=== PATIENT | female | born 1945 | race Caucasian/White ===

== ENCOUNTER → 2017-04-26 | Day surgery (SDC) | payer MEDICARE, BC ==
[~2017-04-26] MED LIST: ASPIRIN 325 MG TAB PO; FENTAnyl 50 MCG/ML VIAL; HEPARIN 1000 UNITS/ML 10 ML INJ; IODIXANOL LOCM 100 ML BTL; LIDOCAINE 1% (MDV) 20 ML INJ; MIDAZOLAM 1 MG/ML 2 ML INJ; MIDAZOLAM 1 MG/ML 2 ML INJ IV; NACL 0.9% 3 ML SYG IV; VERAPAMIL 5 MG INJ
[2017-04-26 07:17] LABS: ADD MAN DIFF? NO
[2017-04-26 07:18] LABS: BASOPHILS % 0.4 % (0.0-2.0); EOSINOPHILS # 0.2 10^3/ul (0.0-0.5); EOSINOPHILS % 3.8 % (0.0-7.0); HEMATOCRIT 38.7 % (37.0-47.0); HEMOGLOBIN 13.5 g/dl (12.0-16.0); LYMPHOCYTES % 18.8 % (15.0-51.0); MEAN CORPUSCULAR HEMOGLOBIN 32.5 pg (29.0-33.0); MEAN CORPUSCULAR HGB CONC 34.9 g/dl (32.0-37.0); MEAN CORPUSCULAR VOLUME 93.3 fl (82.0-101.0); MEAN PLATELET VOLUME 8.9 fl (7.4-10.4); MONOCYTE # 0.4 10^3/ul (0.3-0.9); MONOCYTES % 7.9 % (0.0-11.0); NEUTROPHIL # 3.6 10^3/ul (1.6-7.5); NEUTROPHILS % 68.7 % (39.0-77.0); PLATELET COUNT 260 10^3/UL (140-415); RED BLOOD COUNT 4.15 10^6/ul (4.20-5.40); RED CELL DISTRIBUTION WIDTH 12.3 % (11.5-14.5)
[2017-04-26 07:18] LABS: WHITE BLOOD COUNT 5.2 10^3/ul (4.8-10.8)
[2017-04-26 07:43] LABS: ANION GAP 16 (8-16); CARBON DIOXIDE 28 mmol/L (21-31); CHLORIDE 96 mmol/L (97-110); GLUCOSE 204 mg/dl (70-220)
[2017-04-26 07:45] LABS: BLOOD UREA NITROGEN 15 mg/dl (7-20); CREATININE 0.63 mg/dl (0.44-1.00); POTASSIUM 4.1 mmol/L (3.5-5.1); SODIUM 136 mmol/L (135-144)
[2017-04-26 07:47] LABS: INR 0.89; PROTIME 12.1 Sec (11.9-14.9); PT RATIO 0.9
[2017-04-26] MEDS: hydrALAzine 20 MG INJ IV (08:49)
[2017-04-26] MEDS: ACETAMINOPHEN 325 MG TAB PO (10:14)
== END | disposition home or self-care (01) ==
LOC: SDS 06:13
DX: I21.4 Non-ST elevation (NSTEMI) myocardial infarction (principal); I47.1 Supraventricular tachycardia; E11.9 Type 2 diabetes mellitus without complications; I10 Essential (primary) hypertension; Z95.0 Presence of cardiac pacemaker
CPT/HCPCS: 80048; 82962; 85025; 85610; 85730; 93458

== ENCOUNTER 2017-07-08 05:20 | Inpatient (IN) | payer MEDICARE, BC ==
[2017-07-08 06:46] LABS: ADD MAN DIFF? NO
[2017-07-08 06:48] LABS: BASOPHILS % 0.8 % (0.0-2.0); EOSINOPHILS # 0.3 10^3/ul (0.0-0.5); EOSINOPHILS % 5.5 % (0.0-7.0); HEMATOCRIT 40.6 % (37.0-47.0); HEMOGLOBIN 14.1 g/dl (12.0-16.0); LYMPHOCYTES # 0.9 10^3/ul (0.8-2.9); LYMPHOCYTES % 17.1 % (15.0-51.0); MEAN CORPUSCULAR HEMOGLOBIN 31.8 pg (29.0-33.0); MEAN CORPUSCULAR HGB CONC 34.7 g/dl (32.0-37.0); MEAN CORPUSCULAR VOLUME 91.4 fl (82.0-101.0); MEAN PLATELET VOLUME 9.9 fl (7.4-10.4); MONOCYTE # 0.4 10^3/ul (0.3-0.9); MONOCYTES % 7.9 % (0.0-11.0); NEUTROPHIL # 3.5 10^3/ul (1.6-7.5); NEUTROPHILS % 68.3 % (39.0-77.0); PLATELET COUNT 202 10^3/UL (140-415); RED BLOOD COUNT 4.44 10^6/ul (4.20-5.40); RED CELL DISTRIBUTION WIDTH 12.9 % (11.5-14.5)
[2017-07-08 06:48] LABS: WHITE BLOOD COUNT 5.1 10^3/ul (4.8-10.8)
[2017-07-08] MEDS: SOD CHLORIDE 0.9% 1,000 ML IV (06:58)
[2017-07-08 07:06] LABS: ANION GAP 15 (8-16); BLOOD UREA NITROGEN 17 mg/dl (7-20); CALCIUM 9.3 mg/dl (8.4-10.2); CARBON DIOXIDE 31 mmol/L (21-31); CHLORIDE 98 mmol/L (97-110); CREATININE 0.67 mg/dl (0.44-1.00); GLUCOSE 315 mg/dl (70-220); SODIUM 140 mmol/L (135-144)
[2017-07-08 07:16] LABS: TROPONIN-I 0.024 ng/ml (0.00-0.12)
[2017-07-08] MEDS: ACETAMINOPHEN 325 MG TAB PO (07:29)
[2017-07-08] MEDS ORDERED: GLUCOSE GEL 15 GRAM TUBE BUCCAL (07:30)
[2017-07-08] MEDS ORDERED: GLUCOSE GEL 15 GRAM TUBE PO ×2 (07:30)
[2017-07-08] MEDS ORDERED: DEXTROSE 50% 50 ML SYRINGE IV ×2 (07:30)
[2017-07-08] MEDS ORDERED: GLUCAGON 1 MG INJ IM (07:30)
[2017-07-08] MEDS: INSULIN LISPRO 100 UNIT/ML VIAL SC (07:33)
[2017-07-08 09:18] LABS: ADD UMIC YES; UR ASCORBIC ACID NEGATIVE (NEGATIVE); UR BACTERIA FEW /HPF (NONE SEEN); UR BILIRUBIN (Dip) NEGATIVE (NEGATIVE); UR BLOOD (Dip) NEGATIVE (NEGATIVE); UR CLARITY CLEAR (CLEAR); UR COLOR YELLOW (YELLOW); UR GLUCOSE (Dip) 3+ mg/dL (NEGATIVE); UR KETONES (Dip) NEGATIVE (NEGATIVE); UR LEUKOCYTE ESTERASE (Dip) 1+ Leu/ul (NEGATIVE); UR NITRITE (Dip) POSITIVE (NEGATIVE); UR RBC 1 /HPF (0-5); UR SPECIFIC GRAVITY (Dip) 1.033 (1.003-1.030); UR SQUAMOUS EPITHELIAL CELL FEW /HPF (FEW); UR TOTAL PROTEIN (Dip) NEGATIVE (NEGATIVE); UR UROBILINOGEN (Dip) NEGATIVE (NEGATIVE); UR WBC 46 /HPF (0-5)
[2017-07-08] MEDS: CEFTRIAXONE 1 GM/50 ML (PMX) 50 ML IVPB (09:59)
[2017-07-08] MEDS ORDERED: ACETAMINOPHEN 325 MG TAB PO ×2 (10:30→16:30)
[2017-07-08] MEDS ORDERED: ONDANSETRON 4 MG INJ IV (10:30)
[2017-07-08] MEDS ORDERED: PROVENTIL HFA 6.7GM INHALER INH (15:30)
[2017-07-08] MEDS ORDERED: ONDANSETRON 4 MG TAB PO (16:30)
[2017-07-08 17:06] LABS: CHOL/HDL RATIO 2.7 RATIO; HDL CHOLESTEROL 82 mg/dl (33-92); LDL CHOLESTEROL,CALCULATED 114 mg/dl; TRIGLYCERIDES 129 mg/dl (0-149)
[2017-07-08 17:06] LABS: CHOLESTEROL 222 mg/dl (100-200)
[2017-07-08] MEDS: HYDROCODONE/APAP (5/325) TAB PO (17:07)
[2017-07-08] MEDS ORDERED: INSULIN ASPART [NOVOLOG] 3 ML PEN SC (17:35)
[2017-07-08] MEDS: INSULIN ASPART [NOVOLOG] 3 ML PEN SC ×3 (17:59→21:03)
[2017-07-08] MEDS ORDERED: glyBURIDE 5 MG TAB PO (18:05)
[2017-07-08] MEDS: FUROSEMIDE 20 MG TAB PO (18:15)
[2017-07-08] MEDS: DONEPEZIL 5 MG TAB PO (18:16)
[2017-07-08] MEDS: NICOTINE (21 MG/24 HR) PATCH TRANSDERM (18:17)
[2017-07-08] MEDS: CIPROFLOXACIN 400MG/D5W 200 ML IVPB (18:17)
[2017-07-08] MEDS: ALBUTEROL HFA 8 GM INHALER INH ×2 (18:17→21:00)
[2017-07-08] MEDS: INSULIN GLARGINE [LANtus] 3 ML PEN SC (18:19)
[2017-07-08] MEDS: ARIPIPRAZOLE 5 MG TAB PO (18:45)
[2017-07-08] MEDS ORDERED: clonAZEPAM 0.5 MG TAB PO (21:00)
[2017-07-08] MEDS ORDERED: carBAMAZepine (XR) 200 MG TABSR PO (21:00)
[2017-07-08] MEDS: METOPROLOL 50 MG TAB PO (21:02)
[2017-07-08] MEDS: traZODone 100 MG TAB PO (21:02)
[2017-07-08] MEDS: BENZTROPINE 1 MG TAB PO (21:02)
[2017-07-08] MEDS: clonAZEPAM 0.5 MG TAB PO (23:24)
[2017-07-09] MEDS: ALBUTEROL HFA 8 GM INHALER INH ×6 (01:00→20:30)
[2017-07-09] MEDS: ACCU-CHEK XX (02:00)
[2017-07-09] MEDS ORDERED: ACCU-CHEK XX ×2 (02:00)
[2017-07-09] MEDS: carBAMAZepine (XR) 100 MG TABSR PO ×3 (02:38→20:31)
[2017-07-09] MEDS: CIPROFLOXACIN 400MG/D5W 200 ML IVPB ×2 (05:45→17:39)
[2017-07-09] MEDS: LEVOTHYROXINE 75 MCG TAB PO (05:45)
[2017-07-09] MEDS: PANTOPRAZOLE SODIUM 20 MG TABEC PO (05:45)
[2017-07-09 06:34] LABS: ADD MAN DIFF? NO
[2017-07-09 06:42] LABS: WHITE BLOOD COUNT 4.4 10^3/ul (4.8-10.8)
[2017-07-09 06:42] LABS: BASOPHILS % 0.7 % (0.0-2.0); EOSINOPHILS # 0.3 10^3/ul (0.0-0.5); EOSINOPHILS % 6.6 % (0.0-7.0); HEMATOCRIT 36.7 % (37.0-47.0); HEMOGLOBIN 12.6 g/dl (12.0-16.0); LYMPHOCYTES # 1.3 10^3/ul (0.8-2.9); LYMPHOCYTES % 29.2 % (15.0-51.0); MEAN CORPUSCULAR HEMOGLOBIN 31.7 pg (29.0-33.0); MEAN CORPUSCULAR HGB CONC 34.3 g/dl (32.0-37.0); MEAN CORPUSCULAR VOLUME 92.4 fl (82.0-101.0); MONOCYTE # 0.4 10^3/ul (0.3-0.9); MONOCYTES % 7.9 % (0.0-11.0); NEUTROPHIL # 2.4 10^3/ul (1.6-7.5); NEUTROPHILS % 55.1 % (39.0-77.0); PLATELET COUNT 179 10^3/UL (140-415); RED BLOOD COUNT 3.97 10^6/ul (4.20-5.40); RED CELL DISTRIBUTION WIDTH 12.7 % (11.5-14.5)
[2017-07-09] MEDS: HYDROCODONE/APAP (5/325) TAB PO ×3 (07:00→23:22)
[2017-07-09 07:28] LABS: ALANINE AMINOTRANSFERASE 39 IU/L (13-69); ALBUMIN 3.6 g/dl (3.3-4.9); ALBUMIN/GLOBULIN RATIO 1.44; ALKALINE PHOSPHATASE 71 IU/L (42-121); ANION GAP 11 (8-16); ASPARTATE AMINO TRANSFERASE 30 IU/L (15-46); BILIRUBIN,INDIRECT 0.1 mg/dl (0-1.1); BILIRUBIN,TOTAL 0.1 mg/dl (0.2-1.3); BLOOD UREA NITROGEN 19 mg/dl (7-20); CARBON DIOXIDE 31 mmol/L (21-31); CHLORIDE 100 mmol/L (97-110); CREATININE 0.64 mg/dl (0.44-1.00); GLUCOSE 177 mg/dl (70-220); SODIUM 138 mmol/L (135-144); TOTAL PROTEIN 6.1 g/dl (6.1-8.1)
[2017-07-09] MEDS ORDERED: LEVOTHYROXINE 150 MCG TAB PO (07:30)
[2017-07-09] MEDS: INSULIN GLARGINE [LANtus] 3 ML PEN SC ×2 (08:37→20:35)
[2017-07-09] MEDS: INSULIN ASPART [NOVOLOG] 3 ML PEN SC ×4 (08:38→20:33)
[2017-07-09] MEDS: BENZTROPINE 1 MG TAB PO ×2 (08:39→20:31)
[2017-07-09] MEDS: METOPROLOL 50 MG TAB PO ×2 (08:39→20:31)
[2017-07-09] MEDS: VENLAFAXINE (XR) 75 MG CAP PO (08:40)
[2017-07-09] MEDS: traZODone 100 MG TAB PO ×2 (08:40→20:31)
[2017-07-09] MEDS: DONEPEZIL 5 MG TAB PO (08:40)
[2017-07-09] MEDS: TOLTERODINE (SR) 4 MG CAP PO (08:40)
[2017-07-09] MEDS: ARIPIPRAZOLE 5 MG TAB PO (08:40)
[2017-07-09] MEDS: FUROSEMIDE 20 MG TAB PO (08:40)
[2017-07-09] MEDS: ENALAPRIL 20 MG TAB PO (08:40)
[2017-07-09] MEDS: DILTIAZEM (CD) 120 MG CAP PO (08:40)
[2017-07-09] MEDS: NICOTINE (21 MG/24 HR) PATCH TRANSDERM (08:41)
[2017-07-09 10:21] LABS: HEMOGLOBIN A1C 9.4 % (0-5.9)
[2017-07-09] MEDS: clonAZEPAM 0.5 MG TAB PO (20:30)
[2017-07-10] MEDS: ALBUTEROL HFA 8 GM INHALER INH ×3 (01:00→21:00)
[2017-07-10] MEDS: ACCU-CHEK XX (02:00)
[2017-07-10] MEDS: hydrOXYzine HCL 10 MG TAB PO (04:20)
[2017-07-10] MEDS: LEVOTHYROXINE 75 MCG TAB PO (04:20)
[2017-07-10] MEDS: PANTOPRAZOLE SODIUM 20 MG TABEC PO (04:20)
[2017-07-10] MEDS: CIPROFLOXACIN 400MG/D5W 200 ML IVPB ×2 (04:21→17:02)
[2017-07-10] MEDS: INSULIN ASPART [NOVOLOG] 3 ML PEN SC ×4 (08:03→21:00)
[2017-07-10] MEDS: INSULIN GLARGINE [LANtus] 3 ML PEN SC ×2 (08:04→21:25)
[2017-07-10] MEDS: ARIPIPRAZOLE 5 MG TAB PO (08:44)
[2017-07-10] MEDS: NICOTINE (21 MG/24 HR) PATCH TRANSDERM (08:45)
[2017-07-10] MEDS: BENZTROPINE 1 MG TAB PO ×2 (08:45→20:33)
[2017-07-10] MEDS: carBAMAZepine (XR) 100 MG TABSR PO ×2 (08:45→20:33)
[2017-07-10] MEDS: DILTIAZEM (CD) 120 MG CAP PO (08:46)
[2017-07-10] MEDS: VENLAFAXINE (XR) 75 MG CAP PO (08:46)
[2017-07-10] MEDS: DONEPEZIL 5 MG TAB PO (08:46)
[2017-07-10] MEDS: TOLTERODINE (SR) 4 MG CAP PO (08:47)
[2017-07-10] MEDS: ENALAPRIL 20 MG TAB PO (08:47)
[2017-07-10] MEDS: FUROSEMIDE 20 MG TAB PO (08:47)
[2017-07-10] MEDS: traZODone 100 MG TAB PO ×2 (08:47→20:33)
[2017-07-10] MEDS: METOPROLOL 50 MG TAB PO ×2 (08:48→20:33)
[2017-07-10] MEDS: HYDROCODONE/APAP (5/325) TAB PO (17:03)
[2017-07-10] MEDS: CARISOPRODOL 350 MG TAB PO (17:03)
[2017-07-10] MEDS: clonAZEPAM 0.5 MG TAB PO (20:33)
[2017-07-10] MEDS ORDERED: hydrALAzine 20 MG INJ IV (22:30)
[2017-07-11] MEDS: ALBUTEROL HFA 8 GM INHALER INH ×6 (01:00→21:16)
[2017-07-11] MEDS: ACCU-CHEK XX (02:00)
[2017-07-11] MEDS: LEVOTHYROXINE 75 MCG TAB PO (05:16)
[2017-07-11] MEDS: CIPROFLOXACIN 400MG/D5W 200 ML IVPB ×2 (05:16→17:39)
[2017-07-11] MEDS: PANTOPRAZOLE SODIUM 20 MG TABEC PO (05:16)
[2017-07-11 06:12] LABS: ADD MAN DIFF? NO
[2017-07-11 06:16] LABS: WHITE BLOOD COUNT 5.1 10^3/ul (4.8-10.8)
[2017-07-11 06:16] LABS: BASOPHILS % 0.6 % (0.0-2.0); EOSINOPHILS # 0.3 10^3/ul (0.0-0.5); EOSINOPHILS % 5.3 % (0.0-7.0); HEMOGLOBIN 12.7 g/dl (12.0-16.0); MEAN CORPUSCULAR HEMOGLOBIN 31.2 pg (29.0-33.0); MEAN CORPUSCULAR HGB CONC 34.3 g/dl (32.0-37.0); MEAN CORPUSCULAR VOLUME 90.9 fl (82.0-101.0); MEAN PLATELET VOLUME 9.9 fl (7.4-10.4); MONOCYTE # 0.5 10^3/ul (0.3-0.9); MONOCYTES % 9.1 % (0.0-11.0); NEUTROPHIL # 3.3 10^3/ul (1.6-7.5); NEUTROPHILS % 64.6 % (39.0-77.0); PLATELET COUNT 182 10^3/UL (140-415); RED BLOOD COUNT 4.07 10^6/ul (4.20-5.40); RED CELL DISTRIBUTION WIDTH 12.5 % (11.5-14.5)
[2017-07-11 06:51] LABS: ANION GAP 13 (8-16); BLOOD UREA NITROGEN 19 mg/dl (7-20); CALCIUM 8.7 mg/dl (8.4-10.2); CARBON DIOXIDE 29 mmol/L (21-31); CHLORIDE 96 mmol/L (97-110); CREATININE 0.68 mg/dl (0.44-1.00); GLUCOSE 85 mg/dl (70-220); POTASSIUM 3.7 mmol/L (3.5-5.1); SODIUM 134 mmol/L (135-144)
[2017-07-11] MEDS: INSULIN ASPART [NOVOLOG] 3 ML PEN SC ×4 (08:00→21:00)
[2017-07-11] MEDS: INSULIN GLARGINE [LANtus] 3 ML PEN SC ×2 (09:22→21:27)
[2017-07-11] MEDS: DONEPEZIL 5 MG TAB PO (09:31)
[2017-07-11] MEDS: ARIPIPRAZOLE 5 MG TAB PO (09:31)
[2017-07-11] MEDS: DILTIAZEM (CD) 120 MG CAP PO (09:32)
[2017-07-11] MEDS: traZODone 100 MG TAB PO ×2 (09:32→21:24)
[2017-07-11] MEDS: BENZTROPINE 1 MG TAB PO ×2 (09:32→21:32)
[2017-07-11] MEDS: TOLTERODINE (SR) 4 MG CAP PO (09:33)
[2017-07-11] MEDS: VENLAFAXINE (XR) 75 MG CAP PO (09:33)
[2017-07-11] MEDS: FUROSEMIDE 20 MG TAB PO (09:33)
[2017-07-11] MEDS: ENALAPRIL 20 MG TAB PO (09:34)
[2017-07-11] MEDS: METOPROLOL 50 MG TAB PO ×2 (09:34→21:24)
[2017-07-11] MEDS: carBAMAZepine (XR) 100 MG TABSR PO ×2 (09:34→21:24)
[2017-07-11] MEDS: NICOTINE (21 MG/24 HR) PATCH TRANSDERM (09:36)
[2017-07-11] MEDS: clonAZEPAM 0.5 MG TAB PO (21:25)
[2017-07-12] MEDS: ALBUTEROL HFA 8 GM INHALER INH ×6 (01:00→21:01)
[2017-07-12] MEDS: ACCU-CHEK XX (01:27)
[2017-07-12] MEDS: LEVOTHYROXINE 75 MCG TAB PO (05:35)
[2017-07-12] MEDS: PANTOPRAZOLE SODIUM 20 MG TABEC PO (05:35)
[2017-07-12] MEDS: MAGNESIUM HYDROXIDE 30ML CUP PO (05:35)
[2017-07-12] MEDS: CIPROFLOXACIN 400MG/D5W 200 ML IVPB (05:35)
[2017-07-12 07:03] LABS: ALANINE AMINOTRANSFERASE 47 IU/L (13-69); ALBUMIN 3.4 g/dl (3.3-4.9); ALBUMIN/GLOBULIN RATIO 1.21; ALKALINE PHOSPHATASE 67 IU/L (42-121); ANION GAP 11 (8-16); ASPARTATE AMINO TRANSFERASE 31 IU/L (15-46); BILIRUBIN,INDIRECT 0.2 mg/dl (0-1.1); BILIRUBIN,TOTAL 0.2 mg/dl (0.2-1.3); BLOOD UREA NITROGEN 17 mg/dl (7-20); CALCIUM 8.5 mg/dl (8.4-10.2); CARBON DIOXIDE 29 mmol/L (21-31); CHLORIDE 95 mmol/L (97-110); POTASSIUM 3.5 mmol/L (3.5-5.1); SODIUM 131 mmol/L (135-144); TOTAL PROTEIN 6.2 g/dl (6.1-8.1)
[2017-07-12 07:06] LABS: GLUCOSE 49 mg/dl (70-220)
[2017-07-12] MEDS: INSULIN ASPART [NOVOLOG] 3 ML PEN SC ×4 (08:00→20:45)
[2017-07-12] MEDS: INSULIN GLARGINE [LANtus] 3 ML PEN SC ×2 (08:46→21:00)
[2017-07-12] MEDS: DONEPEZIL 5 MG TAB PO (09:00)
[2017-07-12] MEDS: NICOTINE (21 MG/24 HR) PATCH TRANSDERM (09:21)
[2017-07-12] MEDS: VENLAFAXINE (XR) 75 MG CAP PO (09:22)
[2017-07-12] MEDS: BENZTROPINE 1 MG TAB PO ×2 (09:23→22:17)
[2017-07-12] MEDS: carBAMAZepine (XR) 100 MG TABSR PO ×2 (11:27→22:18)
[2017-07-12] MEDS: ARIPIPRAZOLE 5 MG TAB PO (11:29)
[2017-07-12] MEDS: DILTIAZEM (CD) 120 MG CAP PO (11:30)
[2017-07-12] MEDS: TOLTERODINE (SR) 4 MG CAP PO (11:30)
[2017-07-12] MEDS: traZODone 100 MG TAB PO ×2 (11:31→22:17)
[2017-07-12] MEDS: hydrOXYzine HCL 10 MG TAB PO (11:35)
[2017-07-12] MEDS: FUROSEMIDE 20 MG TAB PO (11:35)
[2017-07-12] MEDS: METOPROLOL 50 MG TAB PO ×2 (11:36→21:04)
[2017-07-12] MEDS: ENALAPRIL 20 MG TAB PO (11:36)
[2017-07-12] MEDS: HYDROCODONE/APAP (5/325) TAB PO (12:04)
[2017-07-12 14:56] LABS: CREATININE, RANDOM URINE 59 mg/dL (20-320); MICROALBUMIN 1.3 mg/dL; MICROALBUMIN/CREATININE RATIO 22 (<30)
[2017-07-12] MEDS: CIPROFLOXACIN 500 MG TAB PO (19:36)
[2017-07-12] MEDS: clonAZEPAM 0.5 MG TAB PO (21:04)
[2017-07-13] MEDS: ACCU-CHEK XX (02:00)
[2017-07-13] MEDS: ALBUTEROL HFA 8 GM INHALER INH ×6 (02:07→21:28)
[2017-07-13] MEDS: MAGNESIUM HYDROXIDE 30ML CUP PO (05:22)
[2017-07-13] MEDS: LEVOTHYROXINE 75 MCG TAB PO (05:28)
[2017-07-13] MEDS: CIPROFLOXACIN 500 MG TAB PO ×2 (05:28→17:32)
[2017-07-13] MEDS: PANTOPRAZOLE SODIUM 20 MG TABEC PO (06:00)
[2017-07-13 06:21] LABS: ADD MAN DIFF? NO
[2017-07-13 06:25] LABS: WHITE BLOOD COUNT 3.6 10^3/ul (4.8-10.8)
[2017-07-13 06:25] LABS: BASOPHILS % 0.3 % (0.0-2.0); EOSINOPHILS # 0.2 10^3/ul (0.0-0.5); EOSINOPHILS % 5.5 % (0.0-7.0); HEMATOCRIT 34.7 % (37.0-47.0); HEMOGLOBIN 12.1 g/dl (12.0-16.0); LYMPHOCYTES # 0.9 10^3/ul (0.8-2.9); LYMPHOCYTES % 24.8 % (15.0-51.0); MEAN CORPUSCULAR HEMOGLOBIN 31.8 pg (29.0-33.0); MEAN CORPUSCULAR HGB CONC 34.9 g/dl (32.0-37.0); MEAN CORPUSCULAR VOLUME 91.1 fl (82.0-101.0); MEAN PLATELET VOLUME 9.9 fl (7.4-10.4); MONOCYTE # 0.4 10^3/ul (0.3-0.9); MONOCYTES % 9.9 % (0.0-11.0); NEUTROPHIL # 2.2 10^3/ul (1.6-7.5); NEUTROPHILS % 59.2 % (39.0-77.0); PLATELET COUNT 158 10^3/UL (140-415); RED BLOOD COUNT 3.81 10^6/ul (4.20-5.40); RED CELL DISTRIBUTION WIDTH 12.6 % (11.5-14.5)
[2017-07-13 06:53] LABS: ANION GAP 11 (8-16); BLOOD UREA NITROGEN 19 mg/dl (7-20); CALCIUM 8.4 mg/dl (8.4-10.2); CARBON DIOXIDE 29 mmol/L (21-31); CHLORIDE 94 mmol/L (97-110); CREATININE 0.82 mg/dl (0.44-1.00); GLUCOSE 91 mg/dl (70-220); POTASSIUM 3.9 mmol/L (3.5-5.1); SODIUM 130 mmol/L (135-144)
[2017-07-13] MEDS: INSULIN ASPART [NOVOLOG] 3 ML PEN SC ×4 (08:00→21:38)
[2017-07-13] MEDS: INSULIN GLARGINE [LANtus] 3 ML PEN SC ×2 (08:28→20:32)
[2017-07-13] MEDS: BENZTROPINE 1 MG TAB PO ×2 (10:30→21:26)
[2017-07-13] MEDS: ARIPIPRAZOLE 5 MG TAB PO (10:31)
[2017-07-13] MEDS: carBAMAZepine (XR) 100 MG TABSR PO ×2 (10:31→21:26)
[2017-07-13] MEDS: DILTIAZEM (CD) 120 MG CAP PO (10:32)
[2017-07-13] MEDS: HYDROCODONE/APAP (5/325) TAB PO ×2 (10:33→23:47)
[2017-07-13] MEDS: ENALAPRIL 20 MG TAB PO (10:33)
[2017-07-13] MEDS: traZODone 100 MG TAB PO ×2 (10:40→21:25)
[2017-07-13] MEDS: VENLAFAXINE (XR) 75 MG CAP PO (10:40)
[2017-07-13] MEDS: TOLTERODINE (SR) 4 MG CAP PO (10:40)
[2017-07-13] MEDS: METOPROLOL 50 MG TAB PO ×2 (10:41→21:27)
[2017-07-13] MEDS: NICOTINE (21 MG/24 HR) PATCH TRANSDERM (10:41)
[2017-07-13] MEDS: FUROSEMIDE 20 MG TAB PO (10:41)
[2017-07-13] MEDS: DONEPEZIL 5 MG TAB PO (12:37)
[2017-07-13] MEDS: clonAZEPAM 0.5 MG TAB PO (21:27)
[2017-07-14] MEDS: ALBUTEROL HFA 8 GM INHALER INH ×6 (01:19→20:43)
[2017-07-14] MEDS: ACCU-CHEK XX (02:00)
[2017-07-14] MEDS: LEVOTHYROXINE 75 MCG TAB PO (06:22)
[2017-07-14] MEDS: PANTOPRAZOLE SODIUM 20 MG TABEC PO (06:22)
[2017-07-14] MEDS: CIPROFLOXACIN 500 MG TAB PO ×2 (06:22→18:39)
[2017-07-14 06:32] LABS: ADD MAN DIFF? NO
[2017-07-14 06:48] LABS: BASOPHILS % 0.6 % (0.0-2.0); EOSINOPHILS # 0.3 10^3/ul (0.0-0.5); EOSINOPHILS % 6.1 % (0.0-7.0); HEMATOCRIT 36.5 % (37.0-47.0); HEMOGLOBIN 12.8 g/dl (12.0-16.0); LYMPHOCYTES # 1.4 10^3/ul (0.8-2.9); LYMPHOCYTES % 30.7 % (15.0-51.0); MEAN CORPUSCULAR HEMOGLOBIN 31.6 pg (29.0-33.0); MEAN CORPUSCULAR HGB CONC 35.1 g/dl (32.0-37.0); MEAN CORPUSCULAR VOLUME 90.1 fl (82.0-101.0); MEAN PLATELET VOLUME 10.3 fl (7.4-10.4); MONOCYTE # 0.5 10^3/ul (0.3-0.9); MONOCYTES % 10.8 % (0.0-11.0); NEUTROPHIL # 2.4 10^3/ul (1.6-7.5); NEUTROPHILS % 51.6 % (39.0-77.0); PLATELET COUNT 161 10^3/UL (140-415); RED BLOOD COUNT 4.05 10^6/ul (4.20-5.40); RED CELL DISTRIBUTION WIDTH 12.4 % (11.5-14.5)
[2017-07-14 06:48] LABS: WHITE BLOOD COUNT 4.6 10^3/ul (4.8-10.8)
[2017-07-14 06:59] LABS: ANION GAP 12 (8-16); BLOOD UREA NITROGEN 18 mg/dl (7-20); CALCIUM 8.4 mg/dl (8.4-10.2); CARBON DIOXIDE 29 mmol/L (21-31); CHLORIDE 92 mmol/L (97-110); CREATININE 0.74 mg/dl (0.44-1.00); GLUCOSE 152 mg/dl (70-220); POTASSIUM 4.3 mmol/L (3.5-5.1); SODIUM 129 mmol/L (135-144)
[2017-07-14] MEDS: INSULIN ASPART [NOVOLOG] 3 ML PEN SC ×4 (08:40→21:21)
[2017-07-14] MEDS: INSULIN GLARGINE [LANtus] 3 ML PEN SC ×2 (08:42→20:04)
[2017-07-14] MEDS: METOPROLOL 50 MG TAB PO ×2 (09:00→20:39)
[2017-07-14] MEDS: TOLTERODINE (SR) 4 MG CAP PO (09:00)
[2017-07-14] MEDS: VENLAFAXINE (XR) 75 MG CAP PO (09:00)
[2017-07-14] MEDS: FUROSEMIDE 20 MG TAB PO (09:00)
[2017-07-14] MEDS: traZODone 100 MG TAB PO ×2 (09:00→20:38)
[2017-07-14] MEDS: ENALAPRIL 20 MG TAB PO (10:09)
[2017-07-14] MEDS: DILTIAZEM (CD) 120 MG CAP PO (10:09)
[2017-07-14] MEDS: DONEPEZIL 5 MG TAB PO (10:10)
[2017-07-14] MEDS: ARIPIPRAZOLE 5 MG TAB PO (10:10)
[2017-07-14] MEDS: carBAMAZepine (XR) 100 MG TABSR PO ×2 (10:10→20:38)
[2017-07-14] MEDS: NICOTINE (21 MG/24 HR) PATCH TRANSDERM (10:11)
[2017-07-14] MEDS: BENZTROPINE 1 MG TAB PO ×2 (10:11→20:38)
[2017-07-14] MEDS: HYDROCODONE/APAP (5/325) TAB PO (18:39)
[2017-07-14] MEDS: clonAZEPAM 0.5 MG TAB PO (20:38)
[2017-07-15] MEDS: ALBUTEROL HFA 8 GM INHALER INH ×4 (00:56→13:16)
[2017-07-15] MEDS: ACCU-CHEK XX (02:00)
[2017-07-15] MEDS: CIPROFLOXACIN 500 MG TAB PO (05:27)
[2017-07-15] MEDS: LEVOTHYROXINE 75 MCG TAB PO (05:27)
[2017-07-15] MEDS: PANTOPRAZOLE SODIUM 20 MG TABEC PO (05:27)
[2017-07-15] MEDS: INSULIN ASPART [NOVOLOG] 3 ML PEN SC ×2 (08:00→13:17)
[2017-07-15] MEDS: ARIPIPRAZOLE 5 MG TAB PO (08:54)
[2017-07-15] MEDS: BENZTROPINE 1 MG TAB PO (08:55)
[2017-07-15] MEDS: carBAMAZepine (XR) 100 MG TABSR PO (08:55)
[2017-07-15] MEDS: ENALAPRIL 20 MG TAB PO (08:56)
[2017-07-15] MEDS: traZODone 100 MG TAB PO (08:57)
[2017-07-15] MEDS: DONEPEZIL 5 MG TAB PO (08:57)
[2017-07-15] MEDS: DILTIAZEM (CD) 120 MG CAP PO (08:59)
[2017-07-15] MEDS: FUROSEMIDE 20 MG TAB PO (09:00)
[2017-07-15] MEDS: VENLAFAXINE (XR) 75 MG CAP PO (09:00)
[2017-07-15] MEDS: METOPROLOL 50 MG TAB PO (09:01)
[2017-07-15] MEDS: INSULIN GLARGINE [LANtus] 3 ML PEN SC (09:02)
[2017-07-15] MEDS: NICOTINE (21 MG/24 HR) PATCH TRANSDERM (09:04)
[2017-07-15] MEDS: TOLTERODINE (SR) 4 MG CAP PO (10:53)
[2017-07-15] MEDS: SODIUM CHLORIDE 1 GM TAB PO (10:53)
== END 2017-07-15 15:47 | DRG 637 ==
LOC: PP2 12:23 → E/R 05:20 → PP2 10:13
DX: E11.65 Type 2 diabetes mellitus with hyperglycemia (principal); G92 Toxic encephalopathy; N39.0 Urinary tract infection, site not specified; I48.1 Persistent atrial fibrillation; F31.60 Bipolar disorder, current episode mixed, unspecified; E87.1 Hypo-osmolality and hyponatremia; Z79.01 Long term (current) use of anticoagulants; Z79.4 Long term (current) use of insulin; E03.9 Hypothyroidism, unspecified; K43.9 Ventral hernia without obstruction or gangrene
CPT/HCPCS: 36415; 70450; 71045; 80048; 80053; 80061; 81001; 82043; 82232; 82962; 83036; 84443; 84484; 85025; 85651; 87040; 87086; 93005; 96365; 96366; 96372; 99285-25

== ENCOUNTER 2017-10-07 13:07 | Emergency (ER) | payer MEDICARE, BC ==
[2017-10-07] MEDS: SOD CHLORIDE 0.9% 2,000 ML IV (15:18)
[2017-10-07 15:23] LABS: ADD MAN DIFF? NO
[2017-10-07 15:25] LABS: WHITE BLOOD COUNT 6.3 10^3/ul (4.8-10.8)
[2017-10-07 15:25] LABS: BASOPHILS % 0.5 % (0.0-2.0); EOSINOPHILS # 0.3 10^3/ul (0.0-0.5); HEMATOCRIT 36.6 % (37.0-47.0); LYMPHOCYTES % 15.2 % (15.0-51.0); MEAN CORPUSCULAR HEMOGLOBIN 31.6 pg (29.0-33.0); MEAN CORPUSCULAR HGB CONC 32.8 g/dl (32.0-37.0); MEAN CORPUSCULAR VOLUME 96.3 fl (82.0-101.0); MEAN PLATELET VOLUME 9.1 fl (7.4-10.4); MONOCYTE # 0.5 10^3/ul (0.3-0.9); MONOCYTES % 7.3 % (0.0-11.0); NEUTROPHIL # 4.5 10^3/ul (1.6-7.5); NEUTROPHILS % 71.7 % (39.0-77.0); PLATELET COUNT 227 10^3/UL (140-415)
[2017-10-07] MEDS: LACTATED RINGER'S 1,000 ML IV (15:27)
[2017-10-07 15:43] LABS: LACTIC ACID 1.3 mmol/L (0.5-2.0)
[2017-10-07 15:45] LABS: ANION GAP 13 (8-16); BLOOD UREA NITROGEN 31 mg/dl (7-20); CARBON DIOXIDE 28 mmol/L (21-31); CHLORIDE 102 mmol/L (97-110); CREATININE 0.79 mg/dl (0.44-1.00); GLUCOSE 88 mg/dl (70-220); POTASSIUM 4.7 mmol/L (3.5-5.1); SODIUM 138 mmol/L (135-144)
[2017-10-07 17:25] LABS: URINE BLOOD (Dip) POC Negative (NEGATIVE); URINE GLUCOSE (Dip) POC Negative (NEGATIVE); URINE KETONES (Dip) POC Negative (NEGATIVE); URINE LEUKOCYTE EST (Dip) POC 3+ (NEGATIVE); URINE NITRITE (Dip) POC Positive (NEGATIVE); URINE TOTAL PROTEIN POC Negative (NEGATIVE)
[2017-10-07] MEDS: CIPROFLOXACIN 500 MG TAB PO (18:03)
== END 2017-10-07 19:31 | disposition home or self-care (01) ==
LOC: E/R 13:07
DX: N30.00 Acute cystitis without hematuria (principal); F17.210 Nicotine dependence, cigarettes, uncomplicated; E11.9 Type 2 diabetes mellitus without complications; Z95.0 Presence of cardiac pacemaker; Z79.4 Long term (current) use of insulin
CPT/HCPCS: 36415; 80048; 81003; 82962; 83605; 85025; 99284-25

== ENCOUNTER 2017-10-08 11:12 | Emergency (ER) | payer MEDICARE, BC ==
[2017-10-08 12:58] LABS: ADD MAN DIFF? NO
[2017-10-08 13:01] LABS: BASOPHILS % 0.5 % (0.0-2.0); EOSINOPHILS # 0.4 10^3/ul (0.0-0.5); EOSINOPHILS % 6.1 % (0.0-7.0); HEMATOCRIT 34.6 % (37.0-47.0); HEMOGLOBIN 11.5 g/dl (12.0-16.0); LYMPHOCYTES % 17.9 % (15.0-51.0); MEAN CORPUSCULAR HGB CONC 33.2 g/dl (32.0-37.0); MEAN CORPUSCULAR VOLUME 96.4 fl (82.0-101.0); MEAN PLATELET VOLUME 9.3 fl (7.4-10.4); MONOCYTE # 0.4 10^3/ul (0.3-0.9); MONOCYTES % 6.7 % (0.0-11.0); NEUTROPHIL # 3.9 10^3/ul (1.6-7.5); NEUTROPHILS % 68.6 % (39.0-77.0); PLATELET COUNT 191 10^3/UL (140-415); RED BLOOD COUNT 3.59 10^6/ul (4.20-5.40); RED CELL DISTRIBUTION WIDTH 12.7 % (11.5-14.5)
[2017-10-08 13:01] LABS: WHITE BLOOD COUNT 5.7 10^3/ul (4.8-10.8)
[2017-10-08] MEDS: SOD CHLORIDE 0.9% 1,000 ML IV (13:08)
[2017-10-08 13:18] LABS: ALANINE AMINOTRANSFERASE 39 IU/L (13-69); ALBUMIN 3.8 g/dl (3.3-4.9); ALBUMIN/GLOBULIN RATIO 1.22; ALKALINE PHOSPHATASE 82 IU/L (42-121); ANION GAP 14 (8-16); ASPARTATE AMINO TRANSFERASE 27 IU/L (15-46); BILIRUBIN,INDIRECT 0.2 mg/dl (0-1.1); BILIRUBIN,TOTAL 0.2 mg/dl (0.2-1.3); BLOOD UREA NITROGEN 33 mg/dl (7-20); CARBON DIOXIDE 29 mmol/L (21-31); CHLORIDE 104 mmol/L (97-110); CREATININE 0.94 mg/dl (0.44-1.00); GLUCOSE 108 mg/dl (70-220); POTASSIUM 4.5 mmol/L (3.5-5.1); SODIUM 142 mmol/L (135-144); TOTAL PROTEIN 6.9 g/dl (6.1-8.1)
[2017-10-08 13:19] LABS: ETHANOL < 10.0 mg/dl
[2017-10-08 13:36] LABS: ADD UMIC NO; UR ASCORBIC ACID NEGATIVE (NEGATIVE); UR BILIRUBIN (Dip) NEGATIVE (NEGATIVE); UR BLOOD (Dip) NEGATIVE (NEGATIVE); UR CLARITY CLEAR (CLEAR); UR COLOR STRAW (YELLOW); UR GLUCOSE (Dip) NEGATIVE (NEGATIVE); UR KETONES (Dip) NEGATIVE (NEGATIVE); UR LEUKOCYTE ESTERASE (Dip) NEGATIVE Leu/ul (NEGATIVE); UR NITRITE (Dip) NEGATIVE (NEGATIVE); UR TOTAL PROTEIN (Dip) NEGATIVE (NEGATIVE); UR UROBILINOGEN (Dip) NEGATIVE (NEGATIVE)
[2017-10-08 14:07] LABS: AMPHETAMINE/METHAMPHETAMINE Negative (NEGATIVE); BARBITURATES Negative (NEGATIVE); BENZODIAZEPINES Negative (NEGATIVE); CANNABINOIDS Negative (NEGATIVE); COCAINE Negative (NEGATIVE); OPIATES Negative (NEGATIVE)
[2017-10-08 14:27] LABS: CARBAMAZEPINE (TEGRETOL) 6.9 ug/ml (8.0-12.0)
[2017-10-08] MEDS: CARBAMAZEPINE 200 MG TAB PO (15:23)
== END 2017-10-08 16:14 | disposition home or self-care (01) ==
LOC: E/R 11:12
DX: F03.90 Unspecified dementia, unspecified severity, without behavioral disturbance, psychotic disturbance, mood disturbance, and anxiety (principal); E11.9 Type 2 diabetes mellitus without complications; E86.0 Dehydration; I10 Essential (primary) hypertension; E03.9 Hypothyroidism, unspecified; Z86.59 Personal history of other mental and behavioral disorders; Z79.4 Long term (current) use of insulin; Z95.0 Presence of cardiac pacemaker; Z87.891 Personal history of nicotine dependence
CPT/HCPCS: 36415; 80053; 80156; 80307; 81003; 84443; 85025; 99284-25

== ENCOUNTER 2017-10-15 19:59 | Emergency (ER) | payer MEDICARE, BC ==
[2017-10-15 21:35] LABS: ADD MAN DIFF? NO
[2017-10-15 21:37] LABS: BASOPHILS % 0.4 % (0.0-2.0); EOSINOPHILS # 0.3 10^3/ul (0.0-0.5); EOSINOPHILS % 4.5 % (0.0-7.0); HEMATOCRIT 36.9 % (37.0-47.0); HEMOGLOBIN 12.1 g/dl (12.0-16.0); LYMPHOCYTES # 1.4 10^3/ul (0.8-2.9); LYMPHOCYTES % 20.4 % (15.0-51.0); MEAN CORPUSCULAR HEMOGLOBIN 31.1 pg (29.0-33.0); MEAN CORPUSCULAR HGB CONC 32.8 g/dl (32.0-37.0); MEAN CORPUSCULAR VOLUME 94.9 fl (82.0-101.0); MEAN PLATELET VOLUME 9.1 fl (7.4-10.4); MONOCYTE # 0.5 10^3/ul (0.3-0.9); MONOCYTES % 7.6 % (0.0-11.0); NEUTROPHIL # 4.5 10^3/ul (1.6-7.5); NEUTROPHILS % 66.8 % (39.0-77.0); PLATELET COUNT 213 10^3/UL (140-415); RED BLOOD COUNT 3.89 10^6/ul (4.20-5.40); RED CELL DISTRIBUTION WIDTH 12.9 % (11.5-14.5)
[2017-10-15 21:37] LABS: WHITE BLOOD COUNT 6.7 10^3/ul (4.8-10.8)
[2017-10-15 21:48] LABS: ADD UMIC NO; UR ASCORBIC ACID NEGATIVE (NEGATIVE); UR BILIRUBIN (Dip) NEGATIVE (NEGATIVE); UR BLOOD (Dip) NEGATIVE (NEGATIVE); UR CLARITY SLIGHTLY CLOUDY (CLEAR); UR COLOR YELLOW (YELLOW); UR GLUCOSE (Dip) NEGATIVE (NEGATIVE); UR KETONES (Dip) TRACE mg/dL (NEGATIVE); UR LEUKOCYTE ESTERASE (Dip) NEGATIVE Leu/ul (NEGATIVE); UR NITRITE (Dip) NEGATIVE (NEGATIVE); UR RBC 1 /HPF (0-5); UR SQUAMOUS EPITHELIAL CELL FEW /HPF (FEW); UR TOTAL PROTEIN (Dip) NEGATIVE (NEGATIVE); UR UROBILINOGEN (Dip) 1+ mg/dL (NEGATIVE); UR WBC 2 /HPF (0-5)
[2017-10-15 22:02] LABS: ALANINE AMINOTRANSFERASE 31 IU/L (13-69); ALBUMIN 4.2 g/dl (3.3-4.9); ALBUMIN/GLOBULIN RATIO 1.31; ALKALINE PHOSPHATASE 85 IU/L (42-121); ANION GAP 16 (8-16); ASPARTATE AMINO TRANSFERASE 23 IU/L (15-46); BILIRUBIN,INDIRECT 0.2 mg/dl (0-1.1); BILIRUBIN,TOTAL 0.2 mg/dl (0.2-1.3); BLOOD UREA NITROGEN 26 mg/dl (7-20); CALCIUM 9.2 mg/dl (8.4-10.2); CARBON DIOXIDE 27 mmol/L (21-31); CHLORIDE 100 mmol/L (97-110); CREATININE 0.88 mg/dl (0.44-1.00); GLUCOSE 102 mg/dl (70-220); LIPASE 34 U/L (23-300); POTASSIUM 4.2 mmol/L (3.5-5.1); SODIUM 139 mmol/L (135-144); TOTAL PROTEIN 7.4 g/dl (6.1-8.1)
[2017-10-15] MEDS: ACETAMINOPHEN 325 MG TAB PO (23:23)
== END 2017-10-15 23:23 | disposition home or self-care (01) ==
LOC: FTE 19:59
DX: M25.561 Pain in right knee (principal); M25.562 Pain in left knee; E11.9 Type 2 diabetes mellitus without complications; Z79.4 Long term (current) use of insulin; Z95.0 Presence of cardiac pacemaker
CPT/HCPCS: 80053; 81001; 81003; 82962; 83690; 85025; 87086; 99283

== ENCOUNTER 2017-10-17 22:41 | Inpatient (IN) | payer MEDICARE, BC ==
[2017-10-17 23:13] LABS: ADD MAN DIFF? NO
[2017-10-17 23:14] LABS: WHITE BLOOD COUNT 4.9 10^3/ul (4.8-10.8)
[2017-10-17 23:14] LABS: BASOPHILS % 0.4 % (0.0-2.0); EOSINOPHILS # 0.2 10^3/ul (0.0-0.5); EOSINOPHILS % 4.7 % (0.0-7.0); HEMATOCRIT 32.8 % (37.0-47.0); HEMOGLOBIN 10.8 g/dl (12.0-16.0); LYMPHOCYTES % 19.9 % (15.0-51.0); MEAN CORPUSCULAR HEMOGLOBIN 31.3 pg (29.0-33.0); MEAN CORPUSCULAR HGB CONC 32.9 g/dl (32.0-37.0); MEAN CORPUSCULAR VOLUME 95.1 fl (82.0-101.0); MEAN PLATELET VOLUME 8.9 fl (7.4-10.4); MONOCYTE # 0.4 10^3/ul (0.3-0.9); MONOCYTES % 7.6 % (0.0-11.0); NEUTROPHIL # 3.3 10^3/ul (1.6-7.5); PLATELET COUNT 194 10^3/UL (140-415); RED BLOOD COUNT 3.45 10^6/ul (4.20-5.40)
[2017-10-17 23:31] LABS: ALANINE AMINOTRANSFERASE 30 IU/L (13-69); ALBUMIN 3.7 g/dl (3.3-4.9); ALBUMIN/GLOBULIN RATIO 1.19; ALKALINE PHOSPHATASE 78 IU/L (42-121); ANION GAP 14 (8-16); ASPARTATE AMINO TRANSFERASE 21 IU/L (15-46); BILIRUBIN,INDIRECT 0.2 mg/dl (0-1.1); BILIRUBIN,TOTAL 0.2 mg/dl (0.2-1.3); BLOOD UREA NITROGEN 24 mg/dl (7-20); CALCIUM 9.1 mg/dl (8.4-10.2); CARBON DIOXIDE 30 mmol/L (21-31); CHLORIDE 100 mmol/L (97-110); GLUCOSE 93 mg/dl (70-220); LIPASE 22 U/L (23-300); POTASSIUM 4.1 mmol/L (3.5-5.1); SODIUM 140 mmol/L (135-144); TOTAL PROTEIN 6.8 g/dl (6.1-8.1)
[2017-10-17] MEDS: SOD CHLORIDE 0.9% 1,000 ML IV (23:31)
[2017-10-17] MEDS: KETOROLAC 15 MG INJ IV (23:31)
[2017-10-17 23:35] LABS: ADD UMIC YES; UR ASCORBIC ACID NEGATIVE (NEGATIVE); UR BILIRUBIN (Dip) NEGATIVE (NEGATIVE); UR BLOOD (Dip) NEGATIVE (NEGATIVE); UR CLARITY CLEAR (CLEAR); UR COLOR YELLOW (YELLOW); UR GLUCOSE (Dip) NEGATIVE (NEGATIVE); UR KETONES (Dip) NEGATIVE (NEGATIVE); UR LEUKOCYTE ESTERASE (Dip) TRACE Leu/ul (NEGATIVE); UR NITRITE (Dip) NEGATIVE (NEGATIVE); UR RBC 1 /HPF (0-5); UR SPECIFIC GRAVITY (Dip) 1.021 (1.003-1.030); UR SQUAMOUS EPITHELIAL CELL FEW /HPF (FEW); UR TOTAL PROTEIN (Dip) NEGATIVE (NEGATIVE); UR UROBILINOGEN (Dip) 1+ mg/dL (NEGATIVE); UR WBC 3 /HPF (0-5)
[2017-10-17 23:43] LABS: TROPONIN-I < 0.012 ng/ml (0.000-0.120)
[2017-10-18 00:04] LABS: ETHANOL < 10.0 mg/dl
[2017-10-18 00:30] LABS: CARBAMAZEPINE (TEGRETOL) 6.9 ug/ml (8.0-12.0)
[2017-10-18] MEDS ORDERED: GLUCOSE GEL 15 GRAM TUBE BUCCAL (05:00)
[2017-10-18] MEDS ORDERED: GLUCAGON 1 MG INJ IM (05:00)
[2017-10-18] MEDS ORDERED: GLUCOSE GEL 15 GRAM TUBE PO ×2 (05:00)
[2017-10-18] MEDS ORDERED: DEXTROSE 50% 50 ML SYRINGE IV (05:00)
[2017-10-18] MEDS ORDERED: ALBUTEROL HFA 8 GM INHALER INH (06:00)
[2017-10-18] MEDS ORDERED: MAGNESIUM HYDROXIDE 30ML CUP PO (06:00)
[2017-10-18 06:20] LABS: ADD MAN DIFF? NO
[2017-10-18 06:31] LABS: BASOPHILS % 0.3 % (0.0-2.0); EOSINOPHILS # 0.2 10^3/ul (0.0-0.5); EOSINOPHILS % 5.1 % (0.0-7.0); HEMATOCRIT 31.6 % (37.0-47.0); HEMOGLOBIN 10.7 g/dl (12.0-16.0); LYMPHOCYTES # 0.8 10^3/ul (0.8-2.9); LYMPHOCYTES % 23.3 % (15.0-51.0); MEAN CORPUSCULAR HEMOGLOBIN 31.9 pg (29.0-33.0); MEAN CORPUSCULAR HGB CONC 33.9 g/dl (32.0-37.0); MEAN CORPUSCULAR VOLUME 94.3 fl (82.0-101.0); MEAN PLATELET VOLUME 9.3 fl (7.4-10.4); MONOCYTE # 0.3 10^3/ul (0.3-0.9); MONOCYTES % 9.3 % (0.0-11.0); NEUTROPHIL # 2.2 10^3/ul (1.6-7.5); PLATELET COUNT 169 10^3/UL (140-415); RED BLOOD COUNT 3.35 10^6/ul (4.20-5.40); RED CELL DISTRIBUTION WIDTH 12.9 % (11.5-14.5)
[2017-10-18 06:31] LABS: WHITE BLOOD COUNT 3.6 10^3/ul (4.8-10.8)
[2017-10-18 06:55] LABS: ALANINE AMINOTRANSFERASE 30 IU/L (13-69); ALBUMIN 3.5 g/dl (3.3-4.9); ALKALINE PHOSPHATASE 75 IU/L (42-121); ANION GAP 15 (8-16); ASPARTATE AMINO TRANSFERASE 23 IU/L (15-46); BILIRUBIN,INDIRECT 0.2 mg/dl (0-1.1); BILIRUBIN,TOTAL 0.2 mg/dl (0.2-1.3); BLOOD UREA NITROGEN 22 mg/dl (7-20); CALCIUM 8.6 mg/dl (8.4-10.2); CARBON DIOXIDE 28 mmol/L (21-31); CHLORIDE 100 mmol/L (97-110); CHOL/HDL RATIO 2.3 RATIO; CHOLESTEROL 158 mg/dl (100-200); CREATININE 0.68 mg/dl (0.44-1.00); GLUCOSE 86 mg/dl (70-220); HDL CHOLESTEROL 67 mg/dl (33-92); LDL CHOLESTEROL,CALCULATED 82 mg/dl; POTASSIUM 3.6 mmol/L (3.5-5.1); SODIUM 139 mmol/L (135-144); TRIGLYCERIDES 44 mg/dl (0-149)
[2017-10-18 07:59] LABS: HEMOGLOBIN A1C 7.5 % (0-5.9)
[2017-10-18] MEDS: CIPROFLOXACIN 500 MG TAB PO ×2 (08:09→20:43)
[2017-10-18] MEDS: DONEPEZIL 5 MG TAB PO (08:09)
[2017-10-18] MEDS: VENLAFAXINE (XR) 75 MG CAP PO (08:09)
[2017-10-18] MEDS: METOPROLOL 50 MG TAB PO ×2 (08:10→20:43)
[2017-10-18] MEDS: carBAMAZepine (XR) 100 MG TABSR PO ×2 (08:10→20:43)
[2017-10-18] MEDS: ARIPIPRAZOLE 5 MG TAB PO (08:11)
[2017-10-18] MEDS: BENZTROPINE 1 MG TAB PO ×2 (08:11→20:42)
[2017-10-18] MEDS: INSULIN ASPART [NOVOLOG] 3 ML PEN SC ×3 (08:11→21:00)
[2017-10-18] MEDS: INSULIN GLARGINE [LANtus] 3 ML PEN SC ×2 (08:13→21:51)
[2017-10-18] MEDS ORDERED: carBAMAZepine (XR) 200 MG TABSR PO (09:00)
[2017-10-18] MEDS ORDERED: glyBURIDE 5 MG TAB PO (09:00)
[2017-10-18] MEDS ORDERED: BENZTROPINE 1 MG TAB PO (09:00)
[2017-10-18] MEDS ORDERED: ARIPIPRAZOLE 5 MG TAB PO (09:00)
[2017-10-18] MEDS: TOLTERODINE (SR) 4 MG CAP PO (10:06)
[2017-10-18] MEDS: LEVOTHYROXINE 150 MCG TAB PO (10:07)
[2017-10-18] MEDS: DILTIAZEM (CD) 120 MG CAP PO (10:10)
[2017-10-18] MEDS: ENALAPRIL 20 MG TAB PO (10:11)
[2017-10-18] MEDS ORDERED: LABETALOL HCL 20MG INJ IV (11:30)
[2017-10-18] MEDS: LABETALOL HCL 20MG INJ IV (12:13)
[2017-10-18] MEDS: HYDROCODONE/APAP (5/325) TAB PO ×2 (13:09→14:58)
[2017-10-18] MEDS: LABETALOL 200 MG in SOD CHLORIDE 0.9% 160 ML IV ×3 (14:17→22:28)
[2017-10-18] MEDS ORDERED: clonAZEPAM 0.5 MG TAB PO (21:00)
[2017-10-18] MEDS: clonAZEPAM 0.5 MG TAB PO (22:24)
[2017-10-19] MEDS: LABETALOL 200 MG in SOD CHLORIDE 0.9% 160 ML IV ×3 (00:37→05:33)
[2017-10-19] MEDS: HYDROCODONE/APAP (5/325) TAB PO ×3 (01:19→18:24)
[2017-10-19] MEDS: ACCU-CHEK XX (01:52)
[2017-10-19 05:41] LABS: ADD MAN DIFF? NO
[2017-10-19 05:54] LABS: WHITE BLOOD COUNT 3.8 10^3/ul (4.8-10.8)
[2017-10-19 05:54] LABS: BASOPHILS % 0.5 % (0.0-2.0); EOSINOPHILS # 0.1 10^3/ul (0.0-0.5); EOSINOPHILS % 3.6 % (0.0-7.0); HEMATOCRIT 28.2 % (37.0-47.0); HEMOGLOBIN 9.6 g/dl (12.0-16.0); LYMPHOCYTES # 0.8 10^3/ul (0.8-2.9); LYMPHOCYTES % 21.6 % (15.0-51.0); MEAN CORPUSCULAR HEMOGLOBIN 32.4 pg (29.0-33.0); MEAN CORPUSCULAR VOLUME 95.3 fl (82.0-101.0); MEAN PLATELET VOLUME 9.4 fl (7.4-10.4); MONOCYTE # 0.4 10^3/ul (0.3-0.9); MONOCYTES % 9.9 % (0.0-11.0); NEUTROPHIL # 2.5 10^3/ul (1.6-7.5); NEUTROPHILS % 63.9 % (39.0-77.0); PLATELET COUNT 152 10^3/UL (140-415); RED BLOOD COUNT 2.96 10^6/ul (4.20-5.40); RED CELL DISTRIBUTION WIDTH 13.1 % (11.5-14.5)
[2017-10-19 06:33] LABS: ANION GAP 10 (8-16); BLOOD UREA NITROGEN 16 mg/dl (7-20); CALCIUM 8.4 mg/dl (8.4-10.2); CARBON DIOXIDE 27 mmol/L (21-31); CHLORIDE 106 mmol/L (97-110); CREATININE 0.69 mg/dl (0.44-1.00); GLUCOSE 111 mg/dl (70-220); POTASSIUM 3.8 mmol/L (3.5-5.1); SODIUM 139 mmol/L (135-144)
[2017-10-19] MEDS: INSULIN ASPART [NOVOLOG] 3 ML PEN SC ×4 (07:35→20:49)
[2017-10-19] MEDS: LEVOTHYROXINE 150 MCG TAB PO (07:40)
[2017-10-19] MEDS: BENZTROPINE 1 MG TAB PO ×2 (08:07→20:52)
[2017-10-19] MEDS: DONEPEZIL 5 MG TAB PO (08:07)
[2017-10-19] MEDS: ARIPIPRAZOLE 5 MG TAB PO (08:07)
[2017-10-19] MEDS: carBAMAZepine (XR) 100 MG TABSR PO ×2 (08:08→20:52)
[2017-10-19] MEDS: METOPROLOL 50 MG TAB PO ×2 (08:08→12:49)
[2017-10-19] MEDS: ENALAPRIL 20 MG TAB PO (08:08)
[2017-10-19] MEDS: CIPROFLOXACIN 500 MG TAB PO ×2 (08:08→20:50)
[2017-10-19] MEDS: TOLTERODINE (SR) 4 MG CAP PO (08:08)
[2017-10-19] MEDS: DILTIAZEM (CD) 120 MG CAP PO (08:09)
[2017-10-19] MEDS: VENLAFAXINE (XR) 75 MG CAP PO (08:09)
[2017-10-19] MEDS: INSULIN GLARGINE [LANtus] 3 ML PEN SC ×2 (09:00→21:08)
[2017-10-19] MEDS: DILTIAZEM-D5W 125MG/125ML DRIP 125 ML IV ×2 (11:39→21:28)
[2017-10-19] MEDS: hydrALAzine 20 MG INJ IV (20:50)
[2017-10-19] MEDS: METOPROLOL 100 MG TAB PO (20:51)
[2017-10-19] MEDS: clonAZEPAM 0.5 MG TAB PO (21:05)
[2017-10-20] MEDS: HYDROCODONE/APAP (5/325) TAB PO ×6 (00:54→22:19)
[2017-10-20] MEDS: ACCU-CHEK XX (02:00)
[2017-10-20] MEDS: DEXTROSE 50% 50 ML SYRINGE IV (03:15)
[2017-10-20] MEDS: hydrALAzine 20 MG INJ IV ×4 (05:24→22:07)
[2017-10-20 05:30] LABS: ADD MAN DIFF? NO
[2017-10-20 05:34] LABS: WHITE BLOOD COUNT 5.3 10^3/ul (4.8-10.8)
[2017-10-20 05:34] LABS: ABNORMAL IP MESSAGE 1; BASOPHILS % 0.4 % (0.0-2.0); EOSINOPHILS # 0.2 10^3/ul (0.0-0.5); EOSINOPHILS % 4.2 % (0.0-7.0); HEMATOCRIT 31.1 % (37.0-47.0); HEMOGLOBIN 10.5 g/dl (12.0-16.0); LYMPHOCYTES # 0.6 10^3/ul (0.8-2.9); LYMPHOCYTES % 10.8 % (15.0-51.0); MEAN CORPUSCULAR HEMOGLOBIN 31.9 pg (29.0-33.0); MEAN CORPUSCULAR HGB CONC 33.8 g/dl (32.0-37.0); MEAN CORPUSCULAR VOLUME 94.5 fl (82.0-101.0); MEAN PLATELET VOLUME 10.2 fl (7.4-10.4); MONOCYTE # 0.5 10^3/ul (0.3-0.9); MONOCYTES % 8.9 % (0.0-11.0); NEUTROPHILS % 75.5 % (39.0-77.0); RED BLOOD COUNT 3.29 10^6/ul (4.20-5.40); RED CELL DISTRIBUTION WIDTH 13.2 % (11.5-14.5)
[2017-10-20 06:00] LABS: ANION GAP 12 (8-16); BLOOD UREA NITROGEN 15 mg/dl (7-20); CALCIUM 8.8 mg/dl (8.4-10.2); CARBON DIOXIDE 24 mmol/L (21-31); CHLORIDE 105 mmol/L (97-110); CREATININE 0.66 mg/dl (0.44-1.00); GLUCOSE 75 mg/dl (70-220); POTASSIUM 3.8 mmol/L (3.5-5.1); SODIUM 137 mmol/L (135-144)
[2017-10-20 06:10] LABS: POSITIVE DIFF @See below
[2017-10-20 06:14] LABS: PLATELET COUNT 183 10^3/UL (140-415)
[2017-10-20] MEDS: LEVOTHYROXINE 150 MCG TAB PO (06:23)
[2017-10-20] MEDS: carBAMAZepine (XR) 100 MG TABSR PO ×2 (08:38→20:24)
[2017-10-20] MEDS: METOPROLOL 50 MG TAB PO ×2 (08:39→20:23)
[2017-10-20] MEDS: DONEPEZIL 5 MG TAB PO (08:40)
[2017-10-20] MEDS: VENLAFAXINE (XR) 75 MG CAP PO (08:40)
[2017-10-20] MEDS: CIPROFLOXACIN 500 MG TAB PO ×2 (08:40→20:23)
[2017-10-20] MEDS: ARIPIPRAZOLE 5 MG TAB PO (08:41)
[2017-10-20] MEDS: DILTIAZEM (CD) 120 MG CAP PO (08:42)
[2017-10-20] MEDS: INSULIN ASPART [NOVOLOG] 3 ML PEN SC ×4 (08:42→20:39)
[2017-10-20] MEDS: BENZTROPINE 1 MG TAB PO ×2 (08:53→20:24)
[2017-10-20] MEDS: ENALAPRIL 20 MG TAB PO ×3 (08:53→16:32)
[2017-10-20] MEDS: INSULIN GLARGINE [LANtus] 3 ML PEN SC ×2 (08:53→20:38)
[2017-10-20] MEDS: TOLTERODINE (SR) 4 MG CAP PO (08:57)
[2017-10-20] MEDS: ACETAMINOPHEN 325 MG TAB PO (18:48)
[2017-10-20] MEDS: clonAZEPAM 0.5 MG TAB PO (20:30)
[2017-10-21] MEDS: ACCU-CHEK XX (01:33)
[2017-10-21] MEDS: hydrALAzine 20 MG INJ IV ×3 (04:40→16:03)
[2017-10-21 05:22] LABS: ADD MAN DIFF? NO
[2017-10-21 05:26] LABS: BASOPHILS % 0.4 % (0.0-2.0); EOSINOPHILS # 0.3 10^3/ul (0.0-0.5); EOSINOPHILS % 5.9 % (0.0-7.0); HEMATOCRIT 31.2 % (37.0-47.0); HEMOGLOBIN 10.7 g/dl (12.0-16.0); LYMPHOCYTES % 19.3 % (15.0-51.0); MEAN CORPUSCULAR HEMOGLOBIN 31.8 pg (29.0-33.0); MEAN CORPUSCULAR HGB CONC 34.3 g/dl (32.0-37.0); MEAN CORPUSCULAR VOLUME 92.6 fl (82.0-101.0); MEAN PLATELET VOLUME 9.3 fl (7.4-10.4); MONOCYTE # 0.5 10^3/ul (0.3-0.9); NEUTROPHIL # 3.4 10^3/ul (1.6-7.5); NEUTROPHILS % 64.2 % (39.0-77.0); PLATELET COUNT 225 10^3/UL (140-415); RED BLOOD COUNT 3.37 10^6/ul (4.20-5.40); RED CELL DISTRIBUTION WIDTH 13.2 % (11.5-14.5)
[2017-10-21 05:26] LABS: WHITE BLOOD COUNT 5.3 10^3/ul (4.8-10.8)
[2017-10-21 05:48] LABS: ANION GAP 14 (8-16); BLOOD UREA NITROGEN 12 mg/dl (7-20); CALCIUM 8.9 mg/dl (8.4-10.2); CARBON DIOXIDE 27 mmol/L (21-31); CHLORIDE 99 mmol/L (97-110); CREATININE 0.69 mg/dl (0.44-1.00); GLUCOSE 64 mg/dl (70-220); SODIUM 136 mmol/L (135-144)
[2017-10-21] MEDS: LEVOTHYROXINE 150 MCG TAB PO (06:08)
[2017-10-21] MEDS: DEXTROSE 50% 50 ML SYRINGE IV (06:19)
[2017-10-21] MEDS: HYDROCODONE/APAP (5/325) TAB PO ×3 (06:58→21:44)
[2017-10-21] MEDS: INSULIN ASPART [NOVOLOG] 3 ML PEN SC ×4 (07:35→21:00)
[2017-10-21] MEDS: ARIPIPRAZOLE 5 MG TAB PO (08:40)
[2017-10-21] MEDS: carBAMAZepine (XR) 100 MG TABSR PO ×2 (08:41→20:01)
[2017-10-21] MEDS: ENALAPRIL 20 MG TAB PO ×2 (08:42→20:01)
[2017-10-21] MEDS: DILTIAZEM (CD) 120 MG CAP PO (08:42)
[2017-10-21] MEDS: VENLAFAXINE (XR) 75 MG CAP PO (08:42)
[2017-10-21] MEDS: BENZTROPINE 1 MG TAB PO ×2 (08:43→20:03)
[2017-10-21] MEDS: TOLTERODINE (SR) 4 MG CAP PO (08:44)
[2017-10-21] MEDS: METOPROLOL 50 MG TAB PO ×2 (08:45→20:03)
[2017-10-21] MEDS: CIPROFLOXACIN 500 MG TAB PO ×2 (08:45→20:01)
[2017-10-21] MEDS: DONEPEZIL 5 MG TAB PO (08:54)
[2017-10-21] MEDS: INSULIN GLARGINE [LANtus] 3 ML PEN SC ×2 (11:19→20:45)
[2017-10-21] MEDS: AMLODIPINE 5 MG TAB PO ×2 (12:58→20:04)
[2017-10-21 15:57] LABS: CREATININE, RANDOM URINE 39 mg/dL (20-320); MICROALBUMIN/CREATININE RATIO 26 (<30)
[2017-10-21] MEDS: clonAZEPAM 0.5 MG TAB PO (20:18)
[2017-10-22] MEDS: ACCU-CHEK XX (02:00)
[2017-10-22] MEDS: HYDROCODONE/APAP (5/325) TAB PO (02:38)
[2017-10-22] MEDS: hydrALAzine 20 MG INJ IV (02:38)
[2017-10-22 05:46] LABS: ADD MAN DIFF? NO
[2017-10-22 06:05] LABS: WHITE BLOOD COUNT 5.5 10^3/ul (4.8-10.8)
[2017-10-22 06:05] LABS: BASOPHILS % 0.4 % (0.0-2.0); EOSINOPHILS # 0.3 10^3/ul (0.0-0.5); EOSINOPHILS % 5.3 % (0.0-7.0); HEMATOCRIT 31.3 % (37.0-47.0); HEMOGLOBIN 10.9 g/dl (12.0-16.0); LYMPHOCYTES # 1.1 10^3/ul (0.8-2.9); LYMPHOCYTES % 19.7 % (15.0-51.0); MEAN CORPUSCULAR HGB CONC 34.8 g/dl (32.0-37.0); MEAN CORPUSCULAR VOLUME 91.8 fl (82.0-101.0); MEAN PLATELET VOLUME 9.4 fl (7.4-10.4); MONOCYTE # 0.6 10^3/ul (0.3-0.9); MONOCYTES % 10.7 % (0.0-11.0); NEUTROPHIL # 3.5 10^3/ul (1.6-7.5); NEUTROPHILS % 63.7 % (39.0-77.0); PLATELET COUNT 234 10^3/UL (140-415); RED BLOOD COUNT 3.41 10^6/ul (4.20-5.40); RED CELL DISTRIBUTION WIDTH 13.2 % (11.5-14.5)
[2017-10-22] MEDS: LEVOTHYROXINE 150 MCG TAB PO (06:21)
[2017-10-22 06:58] LABS: ANION GAP 14 (8-16); BLOOD UREA NITROGEN 14 mg/dl (7-20); CALCIUM 8.4 mg/dl (8.4-10.2); CARBON DIOXIDE 24 mmol/L (21-31); CHLORIDE 99 mmol/L (97-110); CREATININE 0.62 mg/dl (0.44-1.00); GLUCOSE 108 mg/dl (70-220); POTASSIUM 3.9 mmol/L (3.5-5.1); SODIUM 133 mmol/L (135-144)
[2017-10-22] MEDS: INSULIN ASPART [NOVOLOG] 3 ML PEN SC ×4 (07:35→20:48)
[2017-10-22] MEDS: DONEPEZIL 5 MG TAB PO (09:11)
[2017-10-22] MEDS: ARIPIPRAZOLE 5 MG TAB PO (09:11)
[2017-10-22] MEDS: CIPROFLOXACIN 500 MG TAB PO ×2 (09:11→20:40)
[2017-10-22] MEDS: BENZTROPINE 1 MG TAB PO ×2 (09:12→20:54)
[2017-10-22] MEDS: TOLTERODINE (SR) 4 MG CAP PO (09:13)
[2017-10-22] MEDS: VENLAFAXINE (XR) 75 MG CAP PO (09:14)
[2017-10-22] MEDS: AMLODIPINE 5 MG TAB PO ×2 (09:15→20:40)
[2017-10-22] MEDS: METOPROLOL 50 MG TAB PO (09:15)
[2017-10-22] MEDS: ENALAPRIL 20 MG TAB PO ×2 (09:16→20:40)
[2017-10-22] MEDS: INSULIN GLARGINE [LANtus] 3 ML PEN SC ×2 (09:24→20:46)
[2017-10-22] MEDS: carBAMAZepine (XR) 100 MG TABSR PO ×2 (11:52→20:54)
[2017-10-22] MEDS: METOPROLOL 100 MG TAB PO (20:39)
[2017-10-22] MEDS: SODIUM CHLORIDE 1 GM TAB PO (20:54)
[2017-10-22] MEDS: clonAZEPAM 0.5 MG TAB PO (20:54)
[2017-10-23] MEDS: ACCU-CHEK XX (02:25)
[2017-10-23 05:34] LABS: ADD MAN DIFF? NO
[2017-10-23 05:38] LABS: WHITE BLOOD COUNT 4.7 10^3/ul (4.8-10.8)
[2017-10-23 05:38] LABS: BASOPHILS % 0.6 % (0.0-2.0); EOSINOPHILS # 0.3 10^3/ul (0.0-0.5); EOSINOPHILS % 6.7 % (0.0-7.0); HEMATOCRIT 31.9 % (37.0-47.0); HEMOGLOBIN 10.9 g/dl (12.0-16.0); LYMPHOCYTES % 22.3 % (15.0-51.0); MEAN CORPUSCULAR HEMOGLOBIN 31.6 pg (29.0-33.0); MEAN CORPUSCULAR HGB CONC 34.2 g/dl (32.0-37.0); MEAN CORPUSCULAR VOLUME 92.5 fl (82.0-101.0); MEAN PLATELET VOLUME 9.1 fl (7.4-10.4); MONOCYTE # 0.6 10^3/ul (0.3-0.9); MONOCYTES % 13.3 % (0.0-11.0); NEUTROPHIL # 2.7 10^3/ul (1.6-7.5); NEUTROPHILS % 56.9 % (39.0-77.0); PLATELET COUNT 227 10^3/UL (140-415); RED BLOOD COUNT 3.45 10^6/ul (4.20-5.40); RED CELL DISTRIBUTION WIDTH 13.2 % (11.5-14.5)
[2017-10-23 06:06] LABS: ANION GAP 12 (8-16); BLOOD UREA NITROGEN 16 mg/dl (7-20); CALCIUM 8.4 mg/dl (8.4-10.2); CARBON DIOXIDE 25 mmol/L (21-31); CHLORIDE 103 mmol/L (97-110); GLUCOSE 98 mg/dl (70-220); POTASSIUM 3.7 mmol/L (3.5-5.1); SODIUM 136 mmol/L (135-144)
[2017-10-23] MEDS: LEVOTHYROXINE 150 MCG TAB PO (06:15)
[2017-10-23] MEDS: hydrALAzine 20 MG INJ IV ×2 (07:06→16:19)
[2017-10-23] MEDS: HYDROCODONE/APAP (5/325) TAB PO ×2 (07:21→16:28)
[2017-10-23] MEDS: INSULIN ASPART [NOVOLOG] 3 ML PEN SC ×4 (07:35→20:42)
[2017-10-23] MEDS: AMLODIPINE 5 MG TAB PO ×2 (08:27→20:30)
[2017-10-23] MEDS: METOPROLOL 100 MG TAB PO ×2 (08:28→20:29)
[2017-10-23] MEDS: CIPROFLOXACIN 500 MG TAB PO ×2 (08:29→20:28)
[2017-10-23] MEDS: ARIPIPRAZOLE 5 MG TAB PO (08:29)
[2017-10-23] MEDS: ENALAPRIL 20 MG TAB PO ×2 (08:29→20:30)
[2017-10-23] MEDS: DONEPEZIL 5 MG TAB PO (08:29)
[2017-10-23] MEDS: BENZTROPINE 1 MG TAB PO ×2 (08:30→20:29)
[2017-10-23] MEDS: SODIUM CHLORIDE 1 GM TAB PO ×2 (08:37→20:30)
[2017-10-23] MEDS: carBAMAZepine (XR) 100 MG TABSR PO ×2 (08:38→20:30)
[2017-10-23] MEDS: TOLTERODINE (SR) 4 MG CAP PO (08:38)
[2017-10-23] MEDS: INSULIN GLARGINE [LANtus] 3 ML PEN SC ×2 (09:23→20:49)
[2017-10-23] MEDS: VENLAFAXINE (XR) 75 MG CAP PO (09:23)
[2017-10-23] MEDS: clonAZEPAM 0.5 MG TAB PO (20:29)
[2017-10-24] MEDS: ACCU-CHEK XX (01:24)
[2017-10-24] MEDS: LEVOTHYROXINE 150 MCG TAB PO (06:32)
[2017-10-24 06:47] LABS: LACTIC ACID 0.6 mmol/L (0.5-2.0)
[2017-10-24 06:48] LABS: AMMONIA 13 umol/l (9-30)
[2017-10-24] MEDS: INSULIN ASPART [NOVOLOG] 3 ML PEN SC ×4 (08:00→21:00)
[2017-10-24 09:01] LABS: ALDOSTERONE 11 ng/dL
[2017-10-24] MEDS: VENLAFAXINE (XR) 75 MG CAP PO (09:18)
[2017-10-24] MEDS: ARIPIPRAZOLE 5 MG TAB PO (09:19)
[2017-10-24] MEDS: METOPROLOL 100 MG TAB PO ×2 (09:19→20:31)
[2017-10-24] MEDS: BENZTROPINE 1 MG TAB PO ×2 (09:19→20:30)
[2017-10-24] MEDS: AMLODIPINE 5 MG TAB PO ×2 (09:20→20:31)
[2017-10-24] MEDS: TOLTERODINE (SR) 4 MG CAP PO (09:20)
[2017-10-24] MEDS: CIPROFLOXACIN 500 MG TAB PO ×2 (09:20→20:28)
[2017-10-24] MEDS: SODIUM CHLORIDE 1 GM TAB PO ×2 (09:20→20:40)
[2017-10-24] MEDS: carBAMAZepine (XR) 100 MG TABSR PO ×2 (09:20→20:29)
[2017-10-24] MEDS: ENALAPRIL 20 MG TAB PO ×2 (09:20→20:29)
[2017-10-24] MEDS: DONEPEZIL 5 MG TAB PO (09:20)
[2017-10-24] MEDS: INSULIN GLARGINE [LANtus] 3 ML PEN SC ×2 (09:22→21:00)
[2017-10-24] MEDS: hydrALAzine 20 MG INJ IV ×2 (15:43→23:45)
[2017-10-24] MEDS: HYDROCODONE/APAP (5/325) TAB PO (20:00)
[2017-10-24] MEDS: clonAZEPAM 0.5 MG TAB PO (20:40)
[2017-10-25] MEDS: ACCU-CHEK XX (02:00)
[2017-10-25 07:13] LABS: ADD MAN DIFF? NO
[2017-10-25 07:18] LABS: WHITE BLOOD COUNT 5.8 10^3/ul (4.8-10.8)
[2017-10-25 07:18] LABS: BASOPHILS % 0.5 % (0.0-2.0); EOSINOPHILS # 0.3 10^3/ul (0.0-0.5); EOSINOPHILS % 4.8 % (0.0-7.0); HEMATOCRIT 36.5 % (37.0-47.0); HEMOGLOBIN 12.5 g/dl (12.0-16.0); LYMPHOCYTES # 0.9 10^3/ul (0.8-2.9); LYMPHOCYTES % 15.7 % (15.0-51.0); MEAN CORPUSCULAR HEMOGLOBIN 31.6 pg (29.0-33.0); MEAN CORPUSCULAR HGB CONC 34.2 g/dl (32.0-37.0); MEAN CORPUSCULAR VOLUME 92.4 fl (82.0-101.0); MEAN PLATELET VOLUME 8.8 fl (7.4-10.4); MONOCYTE # 0.6 10^3/ul (0.3-0.9); MONOCYTES % 10.2 % (0.0-11.0); NEUTROPHILS % 68.5 % (39.0-77.0); PLATELET COUNT 284 10^3/UL (140-415); RED BLOOD COUNT 3.95 10^6/ul (4.20-5.40); RED CELL DISTRIBUTION WIDTH 13.2 % (11.5-14.5)
[2017-10-25 07:41] LABS: ANION GAP 14 (8-16); BLOOD UREA NITROGEN 13 mg/dl (7-20); CALCIUM 9.1 mg/dl (8.4-10.2); CARBON DIOXIDE 24 mmol/L (21-31); CHLORIDE 102 mmol/L (97-110); CREATININE 0.59 mg/dl (0.44-1.00); GLUCOSE 91 mg/dl (70-220); POTASSIUM 3.7 mmol/L (3.5-5.1); SODIUM 136 mmol/L (135-144)
[2017-10-25] MEDS: LEVOTHYROXINE 150 MCG TAB PO (07:44)
[2017-10-25] MEDS: INSULIN ASPART [NOVOLOG] 3 ML PEN SC ×4 (07:55→20:48)
[2017-10-25] MEDS: CIPROFLOXACIN 500 MG TAB PO ×2 (08:41→20:43)
[2017-10-25] MEDS: METOPROLOL 100 MG TAB PO ×2 (08:41→22:31)
[2017-10-25] MEDS: DONEPEZIL 5 MG TAB PO (08:42)
[2017-10-25] MEDS: BENZTROPINE 1 MG TAB PO ×2 (08:42→20:44)
[2017-10-25] MEDS: VENLAFAXINE (XR) 75 MG CAP PO (08:42)
[2017-10-25] MEDS: SODIUM CHLORIDE 1 GM TAB PO ×2 (08:42→20:44)
[2017-10-25] MEDS: carBAMAZepine (XR) 100 MG TABSR PO ×2 (08:42→20:44)
[2017-10-25] MEDS: ARIPIPRAZOLE 5 MG TAB PO (08:42)
[2017-10-25] MEDS: TOLTERODINE (SR) 4 MG CAP PO (08:42)
[2017-10-25] MEDS: ENALAPRIL 20 MG TAB PO ×2 (08:43→20:45)
[2017-10-25] MEDS: INSULIN GLARGINE [LANtus] 3 ML PEN SC ×2 (09:08→20:53)
[2017-10-25] MEDS: hydrALAzine 20 MG INJ IV ×3 (10:09→20:40)
[2017-10-25] MEDS: HYDROCODONE/APAP (5/325) TAB PO ×3 (12:10→22:21)
[2017-10-25] MEDS: AMLODIPINE 5 MG TAB PO ×2 (13:24→20:44)
[2017-10-25 20:11] LABS: VANILLYLMANDELIC ACID 2.2 mg/24 h (< OR = 6.0)
[2017-10-25] MEDS ORDERED: METOPROLOL 100 MG TAB PO (21:00)
[2017-10-25] MEDS: clonAZEPAM 0.5 MG TAB PO (21:08)
[2017-10-25] MEDS: METOPROLOL 25 MG TAB PO (22:30)
[2017-10-26] MEDS: ACCU-CHEK XX (02:23)
[2017-10-26] MEDS: ACETAMINOPHEN 325 MG TAB PO (04:40)
[2017-10-26] MEDS: HYDROCODONE/APAP (5/325) TAB PO (04:41)
[2017-10-26] MEDS: LEVOTHYROXINE 150 MCG TAB PO (07:03)
[2017-10-26] MEDS: INSULIN ASPART [NOVOLOG] 3 ML PEN SC ×4 (07:52→21:00)
[2017-10-26] MEDS: VENLAFAXINE (XR) 75 MG CAP PO (09:04)
[2017-10-26] MEDS: ARIPIPRAZOLE 5 MG TAB PO (09:04)
[2017-10-26] MEDS: BENZTROPINE 1 MG TAB PO ×2 (09:04→21:19)
[2017-10-26] MEDS: ENALAPRIL 20 MG TAB PO ×2 (09:06→21:22)
[2017-10-26] MEDS: AMLODIPINE 5 MG TAB PO ×2 (09:06→21:22)
[2017-10-26] MEDS: TOLTERODINE (SR) 4 MG CAP PO (09:06)
[2017-10-26] MEDS: CIPROFLOXACIN 500 MG TAB PO (09:07)
[2017-10-26] MEDS: METOPROLOL 100 MG TAB PO ×2 (09:07→21:23)
[2017-10-26] MEDS: METOPROLOL 25 MG TAB PO ×2 (09:08→21:23)
[2017-10-26] MEDS: DONEPEZIL 5 MG TAB PO (09:08)
[2017-10-26] MEDS: carBAMAZepine (XR) 100 MG TABSR PO ×2 (09:08→21:19)
[2017-10-26] MEDS: INSULIN GLARGINE [LANtus] 3 ML PEN SC ×2 (11:20→21:40)
[2017-10-26] MEDS: clonAZEPAM 0.5 MG TAB PO (21:19)
[2017-10-27] MEDS ORDERED: HALOPERIDOL 5 MG TAB PO (00:30)
[2017-10-27] MEDS: ACCU-CHEK XX (02:18)
[2017-10-27] MEDS: LEVOTHYROXINE 150 MCG TAB PO (06:25)
[2017-10-27] MEDS: INSULIN ASPART [NOVOLOG] 3 ML PEN SC ×4 (07:55→20:47)
[2017-10-27] MEDS: carBAMAZepine (XR) 100 MG TABSR PO ×2 (08:09→20:41)
[2017-10-27] MEDS: DONEPEZIL 5 MG TAB PO (08:09)
[2017-10-27] MEDS: ARIPIPRAZOLE 5 MG TAB PO (08:09)
[2017-10-27] MEDS: ENALAPRIL 20 MG TAB PO ×2 (08:10→20:41)
[2017-10-27] MEDS: TOLTERODINE (SR) 4 MG CAP PO (08:10)
[2017-10-27] MEDS: AMLODIPINE 5 MG TAB PO ×2 (08:11→20:41)
[2017-10-27] MEDS: METOPROLOL 100 MG TAB PO ×2 (08:15→20:44)
[2017-10-27] MEDS: METOPROLOL 25 MG TAB PO ×2 (08:16→20:45)
[2017-10-27] MEDS: VENLAFAXINE (XR) 75 MG CAP PO (08:20)
[2017-10-27] MEDS: BENZTROPINE 1 MG TAB PO ×2 (09:11→20:40)
[2017-10-27] MEDS: INSULIN GLARGINE [LANtus] 3 ML PEN SC ×2 (09:14→20:47)
[2017-10-27] MEDS: clonAZEPAM 0.5 MG TAB PO (20:41)
[2017-10-28] MEDS: ACCU-CHEK XX (02:00)
[2017-10-28 07:19] LABS: ADD MAN DIFF? NO
[2017-10-28 07:26] LABS: BASOPHILS % 0.6 % (0.0-2.0); EOSINOPHILS # 0.2 10^3/ul (0.0-0.5); EOSINOPHILS % 4.5 % (0.0-7.0); HEMATOCRIT 36.1 % (37.0-47.0); HEMOGLOBIN 11.9 g/dl (12.0-16.0); LYMPHOCYTES # 1.2 10^3/ul (0.8-2.9); LYMPHOCYTES % 25.1 % (15.0-51.0); MEAN CORPUSCULAR HEMOGLOBIN 30.8 pg (29.0-33.0); MEAN CORPUSCULAR VOLUME 93.5 fl (82.0-101.0); MEAN PLATELET VOLUME 9.1 fl (7.4-10.4); MONOCYTE # 0.5 10^3/ul (0.3-0.9); MONOCYTES % 10.9 % (0.0-11.0); NEUTROPHIL # 2.9 10^3/ul (1.6-7.5); NEUTROPHILS % 58.7 % (39.0-77.0); PLATELET COUNT 263 10^3/UL (140-415); RED BLOOD COUNT 3.86 10^6/ul (4.20-5.40); RED CELL DISTRIBUTION WIDTH 13.3 % (11.5-14.5)
[2017-10-28 07:26] LABS: WHITE BLOOD COUNT 4.9 10^3/ul (4.8-10.8)
[2017-10-28] MEDS: LEVOTHYROXINE 150 MCG TAB PO (07:47)
[2017-10-28] MEDS: INSULIN ASPART [NOVOLOG] 3 ML PEN SC ×4 (07:47→21:56)
[2017-10-28 08:13] LABS: ANION GAP 13 (8-16); BLOOD UREA NITROGEN 14 mg/dl (7-20); CALCIUM 8.7 mg/dl (8.4-10.2); CARBON DIOXIDE 27 mmol/L (21-31); CHLORIDE 99 mmol/L (97-110); GLUCOSE 88 mg/dl (70-220); POTASSIUM 4.1 mmol/L (3.5-5.1); SODIUM 135 mmol/L (135-144)
[2017-10-28] MEDS: DONEPEZIL 5 MG TAB PO (08:48)
[2017-10-28] MEDS: ARIPIPRAZOLE 5 MG TAB PO (08:48)
[2017-10-28] MEDS: TOLTERODINE (SR) 4 MG CAP PO (08:48)
[2017-10-28] MEDS: BENZTROPINE 1 MG TAB PO ×2 (08:49→20:46)
[2017-10-28] MEDS: METOPROLOL 25 MG TAB PO ×2 (08:51→20:49)
[2017-10-28] MEDS: METOPROLOL 100 MG TAB PO ×2 (08:52→20:48)
[2017-10-28] MEDS: ENALAPRIL 20 MG TAB PO ×2 (08:53→20:50)
[2017-10-28] MEDS: AMLODIPINE 5 MG TAB PO ×2 (08:53→20:49)
[2017-10-28] MEDS: INSULIN GLARGINE [LANtus] 3 ML PEN SC ×2 (09:19→21:52)
[2017-10-28] MEDS: VENLAFAXINE (XR) 75 MG CAP PO (09:22)
[2017-10-28] MEDS: carBAMAZepine (XR) 100 MG TABSR PO ×2 (09:23→22:29)
[2017-10-28] MEDS ORDERED: HALOPERIDOL 1 MG TAB PO (15:30)
[2017-10-28] MEDS: clonAZEPAM 0.5 MG TAB PO (20:46)
[2017-10-29] MEDS: ACCU-CHEK XX (02:42)
[2017-10-29] MEDS: LEVOTHYROXINE 150 MCG TAB PO (06:11)
[2017-10-29] MEDS: INSULIN ASPART [NOVOLOG] 3 ML PEN SC ×2 (08:33→11:50)
[2017-10-29] MEDS: INSULIN GLARGINE [LANtus] 3 ML PEN SC (08:33)
[2017-10-29] MEDS: AMLODIPINE 5 MG TAB PO (08:35)
[2017-10-29] MEDS: METOPROLOL 100 MG TAB PO (08:36)
[2017-10-29] MEDS: ENALAPRIL 20 MG TAB PO (08:37)
[2017-10-29] MEDS: VENLAFAXINE (XR) 75 MG CAP PO (08:37)
[2017-10-29] MEDS: METOPROLOL 25 MG TAB PO (08:37)
[2017-10-29] MEDS: ARIPIPRAZOLE 5 MG TAB PO (08:37)
[2017-10-29] MEDS: carBAMAZepine (XR) 100 MG TABSR PO (08:37)
[2017-10-29] MEDS: BENZTROPINE 1 MG TAB PO (08:37)
[2017-10-29] MEDS: TOLTERODINE (SR) 4 MG CAP PO (10:28)
[2017-10-29] MEDS: DONEPEZIL 5 MG TAB PO (10:29)
[2017-10-29] MEDS: hydrALAzine 20 MG INJ IV (12:49)
== END 2017-10-29 14:00 | DRG 640 ==
LOC: ICU 10-22 08:13 → TEL 10-24 16:22 → E/R 22:41 → MS2 23:49 → ICU 10-18 02:48 → TEL 10-26 18:35 → MS4 10-23 21:48 → ICU 10-18 11:55
DX: E86.0 Dehydration (principal); G92 Toxic encephalopathy; I16.1 Hypertensive emergency; F03.91 Unspecified dementia, unspecified severity, with behavioral disturbance; N39.0 Urinary tract infection, site not specified; F25.0 Schizoaffective disorder, bipolar type; E03.9 Hypothyroidism, unspecified; B95.4 Other streptococcus as the cause of diseases classified elsewhere; I48.0 Paroxysmal atrial fibrillation; Z95.0 Presence of cardiac pacemaker; D64.9 Anemia, unspecified
CPT/HCPCS: 36415; 71045; 74176; 76775; 80048; 80053; 80061; 80156; 80307; 81001; 81003; 82043; 82088; 82140; 82382; 82530; 82533; 82962; 83036; 83497; 83605; 83690; 84260; 84443; 84484; 84585; 85025; 87081; 87086; 93005; 96374; 97116; 97162; 99283; 99285-25

== ENCOUNTER 2018-03-08 03:28 | Inpatient (IN) | payer MEDICARE, BC, MEDICAID ==
[2018-03-08] MEDS: ONDANSETRON 4 MG INJ IV (03:57)
[2018-03-08] MEDS: SOD CHLORIDE 0.9% 500 ML IV (03:57)
[2018-03-08] MEDS: morphine 4 MG/ML VIAL IV (03:57)
[2018-03-08 04:04] LABS: ADD MAN DIFF? NO
[2018-03-08 04:22] LABS: BASOPHILS % 0.4 % (0.0-2.0); EOSINOPHILS # 0.2 10^3/ul (0.0-0.5); HEMATOCRIT 39.5 % (37.0-47.0); HEMOGLOBIN 13.1 g/dl (12.0-16.0); LYMPHOCYTES # 1.2 10^3/ul (0.8-2.9); LYMPHOCYTES % 27.5 % (15.0-51.0); MEAN CORPUSCULAR HEMOGLOBIN 30.5 pg (29.0-33.0); MEAN CORPUSCULAR HGB CONC 33.2 g/dl (32.0-37.0); MEAN CORPUSCULAR VOLUME 92.1 fl (82.0-101.0); MEAN PLATELET VOLUME 9.8 fl (7.4-10.4); MONOCYTE # 0.3 10^3/ul (0.3-0.9); MONOCYTES % 7.1 % (0.0-11.0); NEUTROPHIL # 2.7 10^3/ul (1.6-7.5); NEUTROPHILS % 60.6 % (39.0-77.0); PLATELET COUNT 227 10^3/UL (140-415); RED BLOOD COUNT 4.29 10^6/ul (4.20-5.40); RED CELL DISTRIBUTION WIDTH 12.4 % (11.5-14.5)
[2018-03-08 04:22] LABS: WHITE BLOOD COUNT 4.5 10^3/ul (4.8-10.8)
[2018-03-08 04:23] LABS: ALANINE AMINOTRANSFERASE 33 IU/L (13-69); ALBUMIN 4.2 g/dl (3.3-4.9); ALKALINE PHOSPHATASE 77 IU/L (42-121); ANION GAP 11 (5-13); ASPARTATE AMINO TRANSFERASE 27 IU/L (15-46); BILIRUBIN,INDIRECT 0.1 mg/dl (0-1.1); BILIRUBIN,TOTAL 0.1 mg/dl (0.2-1.3); BLOOD UREA NITROGEN 20 mg/dl (7-20); CALCIUM 9.3 mg/dl (8.4-10.2); CARBON DIOXIDE 31 mmol/L (21-31); CHLORIDE 95 mmol/L (97-110); CREATININE 0.65 mg/dl (0.44-1.00); GLUCOSE 228 mg/dl (70-220); LIPASE 36 U/L (23-300); POTASSIUM 4.2 mmol/L (3.5-5.1); SODIUM 137 mmol/L (135-144); TOTAL PROTEIN 6.4 g/dl (6.1-8.1)
[2018-03-08 04:59] LABS: URINE PH (Dip) POC 5.5 (5.0-8.5)
[2018-03-08 04:59] LABS: URINE BLOOD (Dip) POC Negative (NEGATIVE); URINE KETONES (Dip) POC Trace (NEGATIVE); URINE LEUKOCYTE EST (Dip) POC Negative (NEGATIVE); URINE NITRITE (Dip) POC Negative (NEGATIVE); URINE TOTAL PROTEIN POC 1+ (NEGATIVE)
[2018-03-08 05:08] LABS: ADD UMIC YES; UR ASCORBIC ACID NEGATIVE (NEGATIVE); UR BACTERIA FEW /HPF (NONE SEEN); UR BILIRUBIN (Dip) NEGATIVE (NEGATIVE); UR BLOOD (Dip) NEGATIVE (NEGATIVE); UR CLARITY SLIGHTLY CLOUDY (CLEAR); UR COLOR YELLOW (YELLOW); UR GLUCOSE (Dip) 3+ mg/dL (NEGATIVE); UR KETONES (Dip) NEGATIVE (NEGATIVE); UR LEUKOCYTE ESTERASE (Dip) TRACE Leu/ul (NEGATIVE); UR NITRITE (Dip) NEGATIVE (NEGATIVE); UR RBC 0 /HPF (0-5); UR SPECIFIC GRAVITY (Dip) 1.025 (1.003-1.030); UR SQUAMOUS EPITHELIAL CELL FEW /HPF (FEW); UR TOTAL PROTEIN (Dip) NEGATIVE (NEGATIVE); UR UROBILINOGEN (Dip) NEGATIVE (NEGATIVE); UR WBC 19 /HPF (0-5)
[2018-03-08] MEDS ORDERED: ACETAMINOPHEN 325 MG TAB PO (08:30)
[2018-03-08] MEDS ORDERED: ONDANSETRON 4 MG INJ IV (08:30)
[2018-03-08] MEDS: CEFTRIAXONE 1 GM/50 ML (PMX) 50 ML IVPB (09:06)
[2018-03-08] MEDS ORDERED: LORAZEPAM 2 MG INJ IV (16:30)
[2018-03-08] MEDS ORDERED: GLUCOSE GEL 15 GRAM TUBE BUCCAL (17:00)
[2018-03-08] MEDS ORDERED: GLUCAGON 1 MG INJ IM (17:00)
[2018-03-08] MEDS ORDERED: GLUCOSE GEL 15 GRAM TUBE PO (17:00)
[2018-03-08] MEDS ORDERED: DEXTROSE 50% 50 ML SYRINGE IV ×2 (17:00)
[2018-03-08 17:01] LABS: AMMONIA < 9 umol/l (9-30)
[2018-03-08 17:14] LABS: AMYLASE < 30 U/L (11-123)
[2018-03-08] MEDS: ACCU-CHEK XX ×2 (17:44→21:00)
[2018-03-08 17:53] LABS: ERYTHROCYTE SEDIMENTATION RATE 2 mm/Hr (0-30)
[2018-03-08] MEDS: INSULIN ASPART [NOVOLOG] 3 ML PEN SC ×2 (18:18→20:57)
[2018-03-08] MEDS ORDERED: ENOXAPARIN 80 MG/0.8 ML SYG (18:20)
[2018-03-08] MEDS: ENOXAPARIN 80 MG/0.8 ML SYG SC (18:33)
[2018-03-08 20:52] LABS: TROPONIN-I < 0.012 ng/ml (0.000-0.120)
[2018-03-08] MEDS: METOPROLOL 50 MG TAB PO (20:58)
[2018-03-08] MEDS: clonAZEPAM 0.5 MG TAB PO (20:59)
[2018-03-08] MEDS: PRAMIPEXOLE 0.25 MG TAB PO (21:00)
[2018-03-08] MEDS: traZODone 100 MG TAB PO (22:20)
[2018-03-08] MEDS: carBAMAZepine (XR) 200 MG TABSR PO (22:20)
[2018-03-08] MEDS: glyBURIDE 5 MG TAB PO (22:21)
[2018-03-09] MEDS: LEVOTHYROXINE 150 MCG TAB PO (06:55)
[2018-03-09] MEDS: ACCU-CHEK XX ×4 (07:00→21:07)
[2018-03-09 07:24] LABS: ADD MAN DIFF? NO
[2018-03-09 07:30] LABS: BASOPHILS % 0.3 % (0.0-2.0); EOSINOPHILS # 0.2 10^3/ul (0.0-0.5); EOSINOPHILS % 4.5 % (0.0-7.0); HEMATOCRIT 37.7 % (37.0-47.0); HEMOGLOBIN 12.6 g/dl (12.0-16.0); LYMPHOCYTES % 25.9 % (15.0-51.0); MEAN CORPUSCULAR HEMOGLOBIN 30.6 pg (29.0-33.0); MEAN CORPUSCULAR HGB CONC 33.4 g/dl (32.0-37.0); MEAN CORPUSCULAR VOLUME 91.5 fl (82.0-101.0); MEAN PLATELET VOLUME 9.6 fl (7.4-10.4); MONOCYTE # 0.3 10^3/ul (0.3-0.9); MONOCYTES % 7.7 % (0.0-11.0); NEUTROPHIL # 2.3 10^3/ul (1.6-7.5); NEUTROPHILS % 61.3 % (39.0-77.0); PLATELET COUNT 209 10^3/UL (140-415); RED BLOOD COUNT 4.12 10^6/ul (4.20-5.40)
[2018-03-09 07:30] LABS: WHITE BLOOD COUNT 3.8 10^3/ul (4.8-10.8)
[2018-03-09 07:49] LABS: ANION GAP 9 (5-13); BLOOD UREA NITROGEN 17 mg/dl (7-20); CARBON DIOXIDE 30 mmol/L (21-31); CHLORIDE 94 mmol/L (97-110); CREATININE 0.52 mg/dl (0.44-1.00); GLUCOSE 198 mg/dl (70-220); POTASSIUM 4.4 mmol/L (3.5-5.1); SODIUM 133 mmol/L (135-144)
[2018-03-09 08:00] LABS: TROPONIN-I 0.013 ng/ml (0.000-0.120)
[2018-03-09] MEDS: INSULIN ASPART [NOVOLOG] 3 ML PEN SC ×4 (08:34→21:03)
[2018-03-09] MEDS: VENLAFAXINE (XR) 75 MG CAP PO (08:36)
[2018-03-09] MEDS: DONEPEZIL 5 MG TAB PO (08:37)
[2018-03-09] MEDS: METOPROLOL 50 MG TAB PO ×2 (08:37→19:52)
[2018-03-09] MEDS: ENALAPRIL 20 MG TAB PO (08:37)
[2018-03-09] MEDS: PRAMIPEXOLE 0.25 MG TAB PO ×3 (08:38→21:06)
[2018-03-09] MEDS: carBAMAZepine (XR) 200 MG TABSR PO ×2 (08:38→21:06)
[2018-03-09] MEDS: glyBURIDE 5 MG TAB PO ×2 (08:38→21:05)
[2018-03-09] MEDS: ARIPIPRAZOLE 10 MG TAB PO (08:38)
[2018-03-09 08:45] LABS: ERYTHROCYTE SEDIMENTATION RATE 1 mm/Hr (0-30)
[2018-03-09] MEDS: CEFTRIAXONE 1 GM/50 ML (PMX) 50 ML IVPB (09:56)
[2018-03-09] MEDS: DILTIAZEM (CD) 120 MG CAP PO (12:39)
[2018-03-09] MEDS ORDERED: MAGNESIUM HYDROXIDE 30ML CUP PO (15:30)
[2018-03-09] MEDS: ENOXAPARIN 80 MG/0.8 ML SYG SC (17:33)
[2018-03-09] MEDS: HYDROCODONE/APAP (5/325) TAB PO (18:22)
[2018-03-09] MEDS: clonAZEPAM 0.5 MG TAB PO (21:01)
[2018-03-09] MEDS: PERMETHRIN 1% 59 ML TOP (21:05)
[2018-03-09] MEDS: DOCUSATE SODIUM 100 MG CAP PO (21:05)
[2018-03-09] MEDS: traZODone 100 MG TAB PO (21:07)
[2018-03-10] MEDS: LEVOTHYROXINE 150 MCG TAB PO (06:19)
[2018-03-10] MEDS: ACCU-CHEK XX ×4 (07:00→21:00)
[2018-03-10] MEDS: CEFTRIAXONE 1 GM/50 ML (PMX) 50 ML IVPB (08:26)
[2018-03-10] MEDS: DONEPEZIL 5 MG TAB PO (08:27)
[2018-03-10] MEDS: VENLAFAXINE (XR) 75 MG CAP PO (08:27)
[2018-03-10] MEDS: ARIPIPRAZOLE 10 MG TAB PO (08:27)
[2018-03-10] MEDS: METOPROLOL 50 MG TAB PO ×2 (08:28→20:58)
[2018-03-10] MEDS: glyBURIDE 5 MG TAB PO ×2 (08:28→17:59)
[2018-03-10] MEDS: DILTIAZEM (CD) 240 MG CAP PO (08:29)
[2018-03-10] MEDS: PRAMIPEXOLE 0.25 MG TAB PO ×3 (08:29→20:57)
[2018-03-10] MEDS: ENALAPRIL 20 MG TAB PO (08:30)
[2018-03-10] MEDS: carBAMAZepine (XR) 200 MG TABSR PO ×2 (08:30→20:57)
[2018-03-10] MEDS: INSULIN ASPART [NOVOLOG] 3 ML PEN SC ×4 (08:42→21:05)
[2018-03-10] MEDS ORDERED: DILTIAZEM (CD) 120 MG CAP PO (09:00)
[2018-03-10] MEDS: FAMOTIDINE 20 MG TAB PO (12:41)
[2018-03-10] MEDS: HYDROCODONE/APAP (5/325) TAB PO (12:45)
[2018-03-10] MEDS: ENOXAPARIN 80 MG/0.8 ML SYG SC (18:02)
[2018-03-10] MEDS: clonAZEPAM 0.5 MG TAB PO (20:56)
[2018-03-10] MEDS: traZODone 100 MG TAB PO (20:57)
[2018-03-10] MEDS: DOCUSATE SODIUM 100 MG CAP PO (20:57)
[2018-03-11] MEDS: ACCU-CHEK XX ×4 (08:23→19:47)
[2018-03-11] MEDS: LEVOTHYROXINE 150 MCG TAB PO (08:23)
[2018-03-11] MEDS: ARIPIPRAZOLE 10 MG TAB PO (08:23)
[2018-03-11] MEDS: PRAMIPEXOLE 0.25 MG TAB PO ×3 (08:23→19:41)
[2018-03-11] MEDS: glyBURIDE 5 MG TAB PO ×2 (08:23→17:29)
[2018-03-11] MEDS: FAMOTIDINE 20 MG TAB PO (08:23)
[2018-03-11] MEDS: carBAMAZepine (XR) 200 MG TABSR PO ×2 (08:24→19:41)
[2018-03-11] MEDS: VENLAFAXINE (XR) 75 MG CAP PO (08:24)
[2018-03-11] MEDS: DONEPEZIL 5 MG TAB PO (08:24)
[2018-03-11] MEDS: METOPROLOL 50 MG TAB PO ×2 (08:25→19:42)
[2018-03-11] MEDS: ENALAPRIL 20 MG TAB PO (08:25)
[2018-03-11] MEDS: DILTIAZEM (CD) 240 MG CAP PO (08:29)
[2018-03-11] MEDS: INSULIN ASPART [NOVOLOG] 3 ML PEN SC ×4 (08:57→19:45)
[2018-03-11 09:31] LABS: ALANINE AMINOTRANSFERASE 48 IU/L (13-69); ALBUMIN 3.8 g/dl (3.3-4.9); ALKALINE PHOSPHATASE 62 IU/L (42-121); ANION GAP 10 (5-13); ASPARTATE AMINO TRANSFERASE 38 IU/L (15-46); BILIRUBIN,INDIRECT 0.2 mg/dl (0-1.1); BILIRUBIN,TOTAL 0.2 mg/dl (0.2-1.3); BLOOD UREA NITROGEN 18 mg/dl (7-20); CALCIUM 8.9 mg/dl (8.4-10.2); CARBON DIOXIDE 30 mmol/L (21-31); CHLORIDE 94 mmol/L (97-110); CREATININE 0.68 mg/dl (0.44-1.00); GLUCOSE 215 mg/dl (70-220); POTASSIUM 4.6 mmol/L (3.5-5.1); SODIUM 134 mmol/L (135-144); TOTAL PROTEIN 5.7 g/dl (6.1-8.1)
[2018-03-11] MEDS: metFORMIN 500 MG TAB GTB ×2 (13:37→17:28)
[2018-03-11] MEDS: ENOXAPARIN 80 MG/0.8 ML SYG SC (17:31)
[2018-03-11] MEDS: traZODone 100 MG TAB PO (19:40)
[2018-03-11] MEDS: clonAZEPAM 0.5 MG TAB PO (19:41)
[2018-03-11] MEDS: DOCUSATE SODIUM 100 MG CAP PO (19:42)
[2018-03-11] MEDS: HYDROCODONE/APAP (5/325) TAB PO (19:42)
[2018-03-12] MEDS: ACCU-CHEK XX ×4 (07:00→20:47)
[2018-03-12] MEDS: LEVOTHYROXINE 150 MCG TAB PO (08:36)
[2018-03-12] MEDS: PRAMIPEXOLE 0.25 MG TAB PO ×3 (08:36→20:46)
[2018-03-12] MEDS: glyBURIDE 5 MG TAB PO ×2 (08:37→17:19)
[2018-03-12] MEDS: FAMOTIDINE 20 MG TAB PO (08:37)
[2018-03-12] MEDS: ARIPIPRAZOLE 10 MG TAB PO (08:39)
[2018-03-12] MEDS: metFORMIN 500 MG TAB GTB ×2 (08:39→17:19)
[2018-03-12] MEDS: METOPROLOL 50 MG TAB PO ×2 (08:40→20:30)
[2018-03-12] MEDS: DONEPEZIL 5 MG TAB PO (08:40)
[2018-03-12] MEDS: carBAMAZepine (XR) 200 MG TABSR PO ×2 (08:46→20:29)
[2018-03-12] MEDS: INSULIN ASPART [NOVOLOG] 3 ML PEN SC ×4 (08:55→20:38)
[2018-03-12] MEDS: ENALAPRIL 20 MG TAB PO (09:01)
[2018-03-12] MEDS: DILTIAZEM (CD) 240 MG CAP PO (09:04)
[2018-03-12] MEDS: VENLAFAXINE (XR) 37.5 MG CAP PO (09:41)
[2018-03-12] MEDS: ENOXAPARIN 80 MG/0.8 ML SYG SC (17:22)
[2018-03-12] MEDS: traZODone 100 MG TAB PO (20:29)
[2018-03-12] MEDS: DOCUSATE SODIUM 100 MG CAP PO (20:29)
[2018-03-12] MEDS: clonAZEPAM 0.5 MG TAB PO (20:29)
[2018-03-12] MEDS: INSULIN GLARGINE [LANTus] (100 UNITS/ML) SYG SC (20:36)
[2018-03-13] MEDS: metFORMIN 500 MG TAB GTB ×2 (08:00→17:21)
[2018-03-13] MEDS: INSULIN ASPART [NOVOLOG] 3 ML PEN SC ×4 (08:00→20:48)
[2018-03-13] MEDS: ACCU-CHEK XX ×4 (08:33→20:48)
[2018-03-13] MEDS: ENALAPRIL 20 MG TAB PO (08:33)
[2018-03-13] MEDS: FAMOTIDINE 20 MG TAB PO (08:33)
[2018-03-13] MEDS: ARIPIPRAZOLE 10 MG TAB PO (08:34)
[2018-03-13] MEDS: PRAMIPEXOLE 0.25 MG TAB PO ×3 (08:35→20:37)
[2018-03-13] MEDS: carBAMAZepine (XR) 200 MG TABSR PO ×2 (08:35→20:37)
[2018-03-13] MEDS: METOPROLOL 50 MG TAB PO ×2 (08:36→20:38)
[2018-03-13] MEDS: DONEPEZIL 5 MG TAB PO (08:37)
[2018-03-13] MEDS: LEVOTHYROXINE 150 MCG TAB PO (08:38)
[2018-03-13] MEDS: glyBURIDE 5 MG TAB PO ×2 (08:47→17:21)
[2018-03-13] MEDS: DILTIAZEM (CD) 240 MG CAP PO (08:55)
[2018-03-13] MEDS: GLUCOSE GEL 15 GRAM TUBE PO (08:55)
[2018-03-13] MEDS: VENLAFAXINE (XR) 37.5 MG CAP PO (09:00)
[2018-03-13] MEDS: VENLAFAXINE (XR) 75 MG CAP PO (11:42)
[2018-03-13] MEDS: ENOXAPARIN 80 MG/0.8 ML SYG SC (18:24)
[2018-03-13] MEDS: DOCUSATE SODIUM 100 MG CAP PO (20:37)
[2018-03-13] MEDS: traZODone 100 MG TAB PO (20:37)
[2018-03-13] MEDS: clonAZEPAM 0.5 MG TAB PO (20:38)
[2018-03-13] MEDS: INSULIN GLARGINE [LANTus] (100 UNITS/ML) SYG SC (20:47)
[2018-03-14] MEDS: ACCU-CHEK XX ×4 (07:00→20:06)
[2018-03-14] MEDS: INSULIN ASPART [NOVOLOG] 3 ML PEN SC ×4 (08:00→20:05)
[2018-03-14] MEDS: ENALAPRIL 20 MG TAB PO (08:27)
[2018-03-14] MEDS: VENLAFAXINE (XR) 75 MG CAP PO (08:27)
[2018-03-14] MEDS: FAMOTIDINE 20 MG TAB PO (08:27)
[2018-03-14] MEDS: metFORMIN 500 MG TAB GTB ×2 (08:28→17:36)
[2018-03-14] MEDS: glyBURIDE 5 MG TAB PO ×2 (08:28→17:36)
[2018-03-14] MEDS: ARIPIPRAZOLE 10 MG TAB PO (08:28)
[2018-03-14] MEDS: carBAMAZepine (XR) 200 MG TABSR PO ×2 (08:28→20:00)
[2018-03-14] MEDS: DONEPEZIL 5 MG TAB PO (08:28)
[2018-03-14] MEDS: LEVOTHYROXINE 150 MCG TAB PO (08:29)
[2018-03-14] MEDS: METOPROLOL 50 MG TAB PO ×2 (08:29→19:58)
[2018-03-14] MEDS: PRAMIPEXOLE 0.25 MG TAB PO ×3 (08:29→20:00)
[2018-03-14] MEDS: DILTIAZEM (CD) 240 MG CAP PO (08:30)
[2018-03-14 08:54] LABS: ADD MAN DIFF? NO
[2018-03-14] MEDS ORDERED: VENLAFAXINE (XR) 75 MG CAP PO (09:00)
[2018-03-14 09:29] LABS: ANION GAP 9 (5-13); BLOOD UREA NITROGEN 32 mg/dl (7-20); CARBON DIOXIDE 29 mmol/L (21-31); CHLORIDE 93 mmol/L (97-110); GLUCOSE 139 mg/dl (70-220); POTASSIUM 4.3 mmol/L (3.5-5.1); SODIUM 131 mmol/L (135-144)
[2018-03-14 11:46] LABS: BASOPHILS % 0.3 % (0.0-2.0); EOSINOPHILS # 0.2 10^3/ul (0.0-0.5); EOSINOPHILS % 4.4 % (0.0-7.0); HEMATOCRIT 33.9 % (37.0-47.0); HEMOGLOBIN 11.4 g/dl (12.0-16.0); LYMPHOCYTES # 0.9 10^3/ul (0.8-2.9); LYMPHOCYTES % 22.1 % (15.0-51.0); MEAN CORPUSCULAR HEMOGLOBIN 30.9 pg (29.0-33.0); MEAN CORPUSCULAR HGB CONC 33.6 g/dl (32.0-37.0); MEAN CORPUSCULAR VOLUME 91.9 fl (82.0-101.0); MEAN PLATELET VOLUME 9.9 fl (7.4-10.4); MONOCYTE # 0.3 10^3/ul (0.3-0.9); MONOCYTES % 7.7 % (0.0-11.0); NEUTROPHIL # 2.5 10^3/ul (1.6-7.5); NEUTROPHILS % 65.2 % (39.0-77.0); PLATELET COUNT 173 10^3/UL (140-415); RED BLOOD COUNT 3.69 10^6/ul (4.20-5.40); RED CELL DISTRIBUTION WIDTH 12.3 % (11.5-14.5)
[2018-03-14 11:46] LABS: WHITE BLOOD COUNT 3.9 10^3/ul (4.8-10.8)
[2018-03-14] MEDS: ENOXAPARIN 80 MG/0.8 ML SYG SC (17:36)
[2018-03-14] MEDS: INSULIN GLARGINE [LANTus] (100 UNITS/ML) SYG SC (19:56)
[2018-03-14] MEDS: traZODone 100 MG TAB PO (20:00)
[2018-03-14] MEDS: clonAZEPAM 0.5 MG TAB PO (20:00)
[2018-03-14] MEDS: DOCUSATE SODIUM 100 MG CAP PO (20:00)
[2018-03-14] MEDS: HYDROCODONE/APAP (5/325) TAB PO (22:28)
[2018-03-15] MEDS: ACCU-CHEK XX ×4 (07:00→21:08)
[2018-03-15] MEDS: INSULIN ASPART [NOVOLOG] 3 ML PEN SC ×4 (08:00→20:54)
[2018-03-15] MEDS: LEVOTHYROXINE 150 MCG TAB PO (08:11)
[2018-03-15] MEDS: glyBURIDE 5 MG TAB PO ×2 (08:12→17:18)
[2018-03-15] MEDS: metFORMIN 500 MG TAB GTB ×2 (08:13→17:18)
[2018-03-15] MEDS: VENLAFAXINE (XR) 75 MG CAP PO (08:27)
[2018-03-15] MEDS: DONEPEZIL 5 MG TAB PO (08:28)
[2018-03-15] MEDS: PRAMIPEXOLE 0.25 MG TAB PO ×3 (08:28→20:52)
[2018-03-15] MEDS: carBAMAZepine (XR) 200 MG TABSR PO ×2 (08:32→20:49)
[2018-03-15] MEDS: ARIPIPRAZOLE 5 MG TAB PO (08:33)
[2018-03-15] MEDS: FAMOTIDINE 20 MG TAB PO (08:34)
[2018-03-15] MEDS: ENALAPRIL 20 MG TAB PO (08:34)
[2018-03-15] MEDS: METOPROLOL 50 MG TAB PO ×2 (08:35→20:49)
[2018-03-15] MEDS: DILTIAZEM (CD) 240 MG CAP PO (08:36)
[2018-03-15] MEDS: ENOXAPARIN 80 MG/0.8 ML SYG SC (17:27)
[2018-03-15] MEDS: clonAZEPAM 0.5 MG TAB PO (20:49)
[2018-03-15] MEDS: traZODone 100 MG TAB PO (20:50)
[2018-03-15] MEDS: DOCUSATE SODIUM 100 MG CAP PO (20:50)
[2018-03-15] MEDS: INSULIN GLARGINE [LANTus] (100 UNITS/ML) SYG SC (21:05)
[2018-03-16] MEDS: ACCU-CHEK XX ×4 (07:00→21:00)
[2018-03-16] MEDS: INSULIN ASPART [NOVOLOG] 3 ML PEN SC ×4 (08:00→20:35)
[2018-03-16] MEDS: DONEPEZIL 5 MG TAB PO (08:28)
[2018-03-16] MEDS: LEVOTHYROXINE 150 MCG TAB PO (08:28)
[2018-03-16] MEDS: metFORMIN 500 MG TAB GTB ×2 (08:28→17:39)
[2018-03-16] MEDS: DILTIAZEM (CD) 240 MG CAP PO (08:29)
[2018-03-16] MEDS: METOPROLOL 50 MG TAB PO ×2 (08:30→20:29)
[2018-03-16] MEDS: ENALAPRIL 20 MG TAB PO (08:31)
[2018-03-16] MEDS: glyBURIDE 5 MG TAB PO ×2 (08:31→17:39)
[2018-03-16] MEDS: carBAMAZepine (XR) 200 MG TABSR PO ×2 (08:32→20:31)
[2018-03-16] MEDS: ARIPIPRAZOLE 5 MG TAB PO (08:33)
[2018-03-16] MEDS: VENLAFAXINE (XR) 75 MG CAP PO (08:33)
[2018-03-16] MEDS: PRAMIPEXOLE 0.25 MG TAB PO ×3 (08:34→20:30)
[2018-03-16] MEDS: FAMOTIDINE 20 MG TAB PO (08:34)
[2018-03-16] MEDS: PERMETHRIN 1% 59 ML TOP (14:01)
[2018-03-16] MEDS: ENOXAPARIN 80 MG/0.8 ML SYG SC (17:42)
[2018-03-16] MEDS: traZODone 100 MG TAB PO (20:30)
[2018-03-16] MEDS: DOCUSATE SODIUM 100 MG CAP PO (20:30)
[2018-03-16] MEDS: clonAZEPAM 0.5 MG TAB PO (20:30)
[2018-03-16] MEDS: INSULIN GLARGINE [LANTus] (100 UNITS/ML) SYG SC (20:33)
[2018-03-17] MEDS: LEVOTHYROXINE 150 MCG TAB PO (06:50)
[2018-03-17] MEDS: ACCU-CHEK XX ×4 (07:00→20:30)
[2018-03-17] MEDS: glyBURIDE 5 MG TAB PO ×2 (07:00→17:32)
[2018-03-17] MEDS: metFORMIN 500 MG TAB GTB ×2 (08:21→17:32)
[2018-03-17] MEDS: carBAMAZepine (XR) 200 MG TABSR PO ×2 (08:22→20:25)
[2018-03-17] MEDS: FAMOTIDINE 20 MG TAB PO (08:22)
[2018-03-17] MEDS: ARIPIPRAZOLE 5 MG TAB PO (08:23)
[2018-03-17] MEDS: VENLAFAXINE (XR) 75 MG CAP PO (08:23)
[2018-03-17] MEDS: DILTIAZEM (CD) 240 MG CAP PO (08:23)
[2018-03-17] MEDS: PRAMIPEXOLE 0.25 MG TAB PO ×3 (08:24→20:26)
[2018-03-17] MEDS: ENALAPRIL 20 MG TAB PO (08:24)
[2018-03-17] MEDS: METOPROLOL 50 MG TAB PO ×2 (08:24→20:26)
[2018-03-17] MEDS: INSULIN ASPART [NOVOLOG] 3 ML PEN SC ×4 (08:25→20:30)
[2018-03-17] MEDS: DONEPEZIL 5 MG TAB PO (08:26)
[2018-03-17] MEDS: ENOXAPARIN 80 MG/0.8 ML SYG SC (17:32)
[2018-03-17] MEDS: traZODone 100 MG TAB PO (20:25)
[2018-03-17] MEDS: clonAZEPAM 0.5 MG TAB PO (20:25)
[2018-03-17] MEDS: DOCUSATE SODIUM 100 MG CAP PO (20:25)
[2018-03-17] MEDS: INSULIN GLARGINE [LANTus] (100 UNITS/ML) SYG SC (20:30)
[2018-03-18] MEDS: ACCU-CHEK XX ×4 (07:00→20:49)
[2018-03-18] MEDS: INSULIN ASPART [NOVOLOG] 3 ML PEN SC ×4 (08:52→20:48)
[2018-03-18] MEDS: VENLAFAXINE (XR) 75 MG CAP PO (08:53)
[2018-03-18] MEDS: carBAMAZepine (XR) 200 MG TABSR PO ×2 (08:53→20:37)
[2018-03-18] MEDS: PRAMIPEXOLE 0.25 MG TAB PO ×3 (08:53→20:38)
[2018-03-18] MEDS: glyBURIDE 5 MG TAB PO ×2 (08:54→17:28)
[2018-03-18] MEDS: DONEPEZIL 5 MG TAB PO (08:54)
[2018-03-18] MEDS: ARIPIPRAZOLE 5 MG TAB PO (08:54)
[2018-03-18] MEDS: LEVOTHYROXINE 150 MCG TAB PO (08:54)
[2018-03-18] MEDS: DILTIAZEM (CD) 240 MG CAP PO (09:00)
[2018-03-18] MEDS: METOPROLOL 50 MG TAB PO ×2 (09:00→20:39)
[2018-03-18] MEDS: FAMOTIDINE 20 MG TAB PO (09:00)
[2018-03-18] MEDS: metFORMIN 500 MG TAB GTB ×2 (09:01→17:28)
[2018-03-18] MEDS: ENALAPRIL 20 MG TAB PO (09:01)
[2018-03-18] MEDS: ENOXAPARIN 80 MG/0.8 ML SYG SC (17:39)
[2018-03-18] MEDS: clonAZEPAM 0.5 MG TAB PO (20:37)
[2018-03-18] MEDS: traZODone 100 MG TAB PO (20:37)
[2018-03-18] MEDS: DOCUSATE SODIUM 100 MG CAP PO (20:38)
[2018-03-18] MEDS: INSULIN GLARGINE [LANTus] (100 UNITS/ML) SYG SC (20:48)
[2018-03-19] MEDS: INSULIN GLARGINE [LANTus] (100 UNITS/ML) SYG SC ×2 (00:50→20:13)
[2018-03-19 06:15] LABS: ADD MAN DIFF? NO
[2018-03-19 06:19] LABS: BASOPHILS % 0.8 % (0.0-2.0); EOSINOPHILS # 0.2 10^3/ul (0.0-0.5); EOSINOPHILS % 4.7 % (0.0-7.0); HEMOGLOBIN 11.8 g/dl (12.0-16.0); LYMPHOCYTES # 1.2 10^3/ul (0.8-2.9); LYMPHOCYTES % 33.7 % (15.0-51.0); MEAN CORPUSCULAR HGB CONC 33.7 g/dl (32.0-37.0); MEAN CORPUSCULAR VOLUME 91.9 fl (82.0-101.0); MEAN PLATELET VOLUME 9.9 fl (7.4-10.4); MONOCYTE # 0.3 10^3/ul (0.3-0.9); MONOCYTES % 8.6 % (0.0-11.0); NEUTROPHIL # 1.9 10^3/ul (1.6-7.5); NEUTROPHILS % 51.9 % (39.0-77.0); PLATELET COUNT 159 10^3/UL (140-415); RED BLOOD COUNT 3.81 10^6/ul (4.20-5.40); RED CELL DISTRIBUTION WIDTH 12.6 % (11.5-14.5)
[2018-03-19 06:19] LABS: WHITE BLOOD COUNT 3.6 10^3/ul (4.8-10.8)
[2018-03-19 06:36] LABS: ALANINE AMINOTRANSFERASE 54 IU/L (13-69); ALBUMIN 3.2 g/dl (3.3-4.9); ALBUMIN/GLOBULIN RATIO 1.18; ALKALINE PHOSPHATASE 73 IU/L (42-121); ANION GAP 8 (5-13); ASPARTATE AMINO TRANSFERASE 20 IU/L (15-46); BILIRUBIN,INDIRECT 0.3 mg/dl (0-1.1); BILIRUBIN,TOTAL 0.3 mg/dl (0.2-1.3); BLOOD UREA NITROGEN 19 mg/dl (7-20); CALCIUM 8.7 mg/dl (8.4-10.2); CARBON DIOXIDE 31 mmol/L (21-31); CHLORIDE 98 mmol/L (97-110); CREATININE 0.61 mg/dl (0.44-1.00); GLUCOSE 91 mg/dl (70-220); POTASSIUM 4.2 mmol/L (3.5-5.1); SODIUM 137 mmol/L (135-144); TOTAL PROTEIN 5.9 g/dl (6.1-8.1)
[2018-03-19 07:42] LABS: ERYTHROCYTE SEDIMENTATION RATE 3 mm/Hr (0-30)
[2018-03-19] MEDS: INSULIN ASPART [NOVOLOG] 3 ML PEN SC ×4 (08:00→20:14)
[2018-03-19] MEDS: metFORMIN 500 MG TAB GTB ×2 (08:00→17:51)
[2018-03-19] MEDS: glyBURIDE 5 MG TAB PO ×2 (08:20→17:51)
[2018-03-19] MEDS: ACCU-CHEK XX ×4 (08:20→20:21)
[2018-03-19] MEDS: LEVOTHYROXINE 150 MCG TAB PO (08:21)
[2018-03-19] MEDS: PRAMIPEXOLE 0.25 MG TAB PO ×3 (08:21→20:11)
[2018-03-19] MEDS: DONEPEZIL 5 MG TAB PO (08:22)
[2018-03-19] MEDS: carBAMAZepine (XR) 200 MG TABSR PO ×2 (08:22→20:10)
[2018-03-19] MEDS: FAMOTIDINE 20 MG TAB PO (08:22)
[2018-03-19] MEDS: ARIPIPRAZOLE 5 MG TAB PO (08:22)
[2018-03-19] MEDS: VENLAFAXINE (XR) 75 MG CAP PO (08:22)
[2018-03-19] MEDS: ENALAPRIL 20 MG TAB PO (08:24)
[2018-03-19] MEDS: METOPROLOL 50 MG TAB PO ×2 (08:25→20:11)
[2018-03-19] MEDS: DILTIAZEM (CD) 240 MG CAP PO (08:25)
[2018-03-19] MEDS: HYDROCODONE/APAP (5/325) TAB PO (14:45)
[2018-03-19] MEDS: PERMETHRIN 1% 59 ML TOP (17:51)
[2018-03-19] MEDS ORDERED: INSULIN GLARGINE [LANTus] (100 UNITS/ML) SYG SC (20:00)
[2018-03-19] MEDS: clonAZEPAM 0.5 MG TAB PO (20:10)
[2018-03-19] MEDS: DOCUSATE SODIUM 100 MG CAP PO (20:10)
[2018-03-19] MEDS: traZODone 100 MG TAB PO (20:11)
[2018-03-20] MEDS: glyBURIDE 5 MG TAB PO ×3 (07:00→17:05)
[2018-03-20] MEDS: ACCU-CHEK XX ×4 (07:00→21:53)
[2018-03-20] MEDS: INSULIN ASPART [NOVOLOG] 3 ML PEN SC ×4 (08:00→21:52)
[2018-03-20] MEDS: LEVOTHYROXINE 150 MCG TAB PO (08:03)
[2018-03-20] MEDS: VENLAFAXINE (XR) 75 MG CAP PO (08:04)
[2018-03-20] MEDS: metFORMIN 500 MG TAB GTB ×2 (08:05→17:06)
[2018-03-20] MEDS: DILTIAZEM (CD) 240 MG CAP PO (08:06)
[2018-03-20] MEDS: FAMOTIDINE 20 MG TAB PO (08:07)
[2018-03-20] MEDS: ARIPIPRAZOLE 5 MG TAB PO (08:07)
[2018-03-20] MEDS: DONEPEZIL 5 MG TAB PO (08:07)
[2018-03-20] MEDS: carBAMAZepine (XR) 200 MG TABSR PO ×2 (08:07→20:23)
[2018-03-20] MEDS: ENALAPRIL 20 MG TAB PO (08:07)
[2018-03-20] MEDS: PRAMIPEXOLE 0.25 MG TAB PO ×3 (08:08→21:49)
[2018-03-20] MEDS: METOPROLOL 50 MG TAB PO ×2 (08:09→20:22)
[2018-03-20] MEDS: INSULIN GLARGINE [LANTus] (100 UNITS/ML) SYG SC ×2 (20:00→21:52)
[2018-03-20] MEDS: clonAZEPAM 0.5 MG TAB PO (20:22)
[2018-03-20] MEDS: HYDROCODONE/APAP (5/325) TAB PO (20:23)
[2018-03-20] MEDS: DOCUSATE SODIUM 100 MG CAP PO (20:23)
[2018-03-20] MEDS: traZODone 100 MG TAB PO (20:23)
[2018-03-21] MEDS: LEVOTHYROXINE 150 MCG TAB PO (06:20)
[2018-03-21] MEDS: ACCU-CHEK XX ×4 (07:00→20:32)
[2018-03-21] MEDS: glyBURIDE 5 MG TAB PO ×2 (07:00→17:14)
[2018-03-21] MEDS: INSULIN ASPART [NOVOLOG] 3 ML PEN SC ×4 (08:00→20:32)
[2018-03-21] MEDS: metFORMIN 500 MG TAB GTB ×2 (08:00→17:14)
[2018-03-21] MEDS: ARIPIPRAZOLE 5 MG TAB PO (09:23)
[2018-03-21] MEDS: VENLAFAXINE (XR) 75 MG CAP PO (09:23)
[2018-03-21] MEDS: carBAMAZepine (XR) 200 MG TABSR PO ×2 (09:23→20:31)
[2018-03-21] MEDS: PRAMIPEXOLE 0.25 MG TAB PO ×3 (09:24→20:32)
[2018-03-21] MEDS: DONEPEZIL 5 MG TAB PO (09:24)
[2018-03-21] MEDS: FAMOTIDINE 20 MG TAB PO (09:25)
[2018-03-21] MEDS: ENALAPRIL 20 MG TAB PO (09:25)
[2018-03-21] MEDS: METOPROLOL 50 MG TAB PO ×2 (09:26→20:36)
[2018-03-21] MEDS: DILTIAZEM (CD) 240 MG CAP PO (09:53)
[2018-03-21] MEDS: clonAZEPAM 0.5 MG TAB PO (20:31)
[2018-03-21] MEDS: DOCUSATE SODIUM 100 MG CAP PO (20:31)
[2018-03-21] MEDS: traZODone 100 MG TAB PO (20:32)
[2018-03-22] MEDS: HYDROCODONE/APAP (5/325) TAB PO (00:30)
[2018-03-22] MEDS: ACCU-CHEK XX ×4 (07:00→21:00)
[2018-03-22] MEDS: LEVOTHYROXINE 150 MCG TAB PO (07:46)
[2018-03-22] MEDS: INSULIN ASPART [NOVOLOG] 3 ML PEN SC ×4 (08:50→21:06)
[2018-03-22] MEDS: INSULIN GLARGINE [LANTus] (100 UNITS/ML) SYG SC (08:55)
[2018-03-22] MEDS: glyBURIDE 5 MG TAB PO ×2 (08:57→17:27)
[2018-03-22] MEDS: VENLAFAXINE (XR) 75 MG CAP PO (08:57)
[2018-03-22] MEDS: PRAMIPEXOLE 0.25 MG TAB PO ×2 (08:58→21:04)
[2018-03-22] MEDS: carBAMAZepine (XR) 200 MG TABSR PO ×2 (08:58→21:04)
[2018-03-22] MEDS: ENALAPRIL 20 MG TAB PO (08:59)
[2018-03-22] MEDS: DONEPEZIL 5 MG TAB PO (08:59)
[2018-03-22] MEDS: metFORMIN 500 MG TAB GTB ×2 (08:59→17:28)
[2018-03-22] MEDS: METOPROLOL 50 MG TAB PO ×2 (09:00→21:04)
[2018-03-22] MEDS: ARIPIPRAZOLE 5 MG TAB PO (09:00)
[2018-03-22] MEDS: DILTIAZEM (CD) 240 MG CAP PO (09:00)
[2018-03-22] MEDS: FAMOTIDINE 20 MG TAB PO (09:00)
[2018-03-22] MEDS: DOCUSATE SODIUM 100 MG CAP PO (21:03)
[2018-03-22] MEDS: clonAZEPAM 0.5 MG TAB PO (21:04)
[2018-03-22] MEDS: traZODone 100 MG TAB PO (21:05)
[2018-03-23] MEDS: LEVOTHYROXINE 150 MCG TAB PO (06:10)
[2018-03-23] MEDS: ACCU-CHEK XX ×3 (07:00→17:41)
[2018-03-23] MEDS: INSULIN ASPART [NOVOLOG] 3 ML PEN SC ×3 (08:00→17:44)
[2018-03-23] MEDS: carBAMAZepine (XR) 200 MG TABSR PO (09:00)
[2018-03-23] MEDS: DONEPEZIL 5 MG TAB PO (09:15)
[2018-03-23] MEDS: FAMOTIDINE 20 MG TAB PO (09:15)
[2018-03-23] MEDS: DILTIAZEM (CD) 240 MG CAP PO (09:16)
[2018-03-23] MEDS: ENALAPRIL 20 MG TAB PO (09:16)
[2018-03-23] MEDS: METOPROLOL 50 MG TAB PO (09:17)
[2018-03-23] MEDS: glyBURIDE 5 MG TAB PO ×2 (09:17→17:43)
[2018-03-23] MEDS: PRAMIPEXOLE 0.25 MG TAB PO (09:17)
[2018-03-23] MEDS: VENLAFAXINE (XR) 75 MG CAP PO (09:18)
[2018-03-23] MEDS: ARIPIPRAZOLE 5 MG TAB PO (09:19)
[2018-03-23] MEDS: metFORMIN 500 MG TAB GTB ×2 (09:19→17:43)
[2018-03-23] MEDS: INSULIN GLARGINE [LANTus] (100 UNITS/ML) SYG SC (09:20)
== END 2018-03-23 18:30 | DRG 92 ==
LOC: E/R 03:28 → 5EC 08:32
DX: G92 Toxic encephalopathy (principal); I48.92 Unspecified atrial flutter; F05 Delirium due to known physiological condition; N39.0 Urinary tract infection, site not specified; F31.89 Other bipolar disorder; T44.3X5A Adverse effect of other parasympatholytics [anticholinergics and antimuscarinics] and spasmolytics, initial encounter; B85.0 Pediculosis due to Pediculus humanus capitis; F03.90 Unspecified dementia, unspecified severity, without behavioral disturbance, psychotic disturbance, mood disturbance, and anxiety; Z95.0 Presence of cardiac pacemaker; E11.65 Type 2 diabetes mellitus with hyperglycemia; R10.9 Unspecified abdominal pain; I10 Essential (primary) hypertension; G25.1 Drug-induced tremor; R32 Unspecified urinary incontinence; K43.9 Ventral hernia without obstruction or gangrene
CPT/HCPCS: 36415; 71045; 74176; 80048; 80053; 81001; 81003; 82140; 82150; 82962; 83690; 84443; 84484; 85025; 85651; 87086; 93005; 96361; 96374; 96375; 97110; 97116; 97161; 97530; 99285-25

== ENCOUNTER 2018-05-01 20:13 | Emergency (ER) | payer BC, MEDICAID, MEDICARE ==
[2018-05-01] MEDS: KETOROLAC 30 MG INJ IM (22:06)
[2018-05-01] MEDS: hydrALAzine 20 MG INJ IV (22:57)
== END 2018-05-01 23:20 | disposition home or self-care (01) ==
LOC: E/R 20:13
DX: S63.91XA Sprain of unspecified part of right wrist and hand, initial encounter (principal); S00.83XA Contusion of other part of head, initial encounter; F03.90 Unspecified dementia, unspecified severity, without behavioral disturbance, psychotic disturbance, mood disturbance, and anxiety; I11.0 Hypertensive heart disease with heart failure; I50.9 Heart failure, unspecified; E11.9 Type 2 diabetes mellitus without complications; J44.9 Chronic obstructive pulmonary disease, unspecified; J45.909 Unspecified asthma, uncomplicated; W18.39XA Other fall on same level, initial encounter; Y92.9 Unspecified place or not applicable; Z95.0 Presence of cardiac pacemaker; Z79.4 Long term (current) use of insulin
CPT/HCPCS: 70450; 70486; 71045; 72170; 73130-RT; 96372; 96374; 99285-25